=== PATIENT | male | born 1960 | race Caucasian/White ===

== ENCOUNTER 2016-08-06 19:04 | Emergency (ER) | payer OTHER ==
[2016-08-06 19:11] VITALS: BP 127/69; TEMP 98.5; BMI 24.4
--- NOTE | 2016-08-06 19:27 | ED.PDOC ---
General ED Provider: Dr. GUILLERMO RAMIREZ-ER Chief Complaint: Hand Pain/Injury Stated Complaint: a tool box lid fell on my finger Time Seen by Physician: 19:10 Mode of Arrival: Walk-In Information Source: Patient, Family Exam Limitations: No limitations Primary Care Provider: CAMMIE FINN Nursing and Triage Documentation Reviewed and Agree: Yes Musculoskeletal Complaint Exam - Hand/Wrist Complaint/Exam Location of Pain: Reports: Right, Digit #4 Mechanism of Injury: Reports: Trauma Onset/Duration: one hour Symptoms Are: Still present Onset of Pain: Reports: Immediate Initial Severity: Mild Current Severity: Mild Location: Reports: Discrete (right ring finger) Character: Reports: Dull, Aching, Stiffness Alleviating: Reports: None Aggravating: Reports: Movement Associated Signs and Symptoms: Reports: Swelling, Bruising. Denies: Redness, Fever, Weakness, Numbness, Tingling Dominant Hand: Right Hand/Wrist Findings: Present: Swelling, Ecchymosis Tenderness: Present: Phalanx Compartment Syndrome Risk Factors: Present: Pain Differential Diagnoses: Contusion, Closed Fracture, Open Fracture Review of Systems - Review Of Systems Constitutional: Reports: No symptoms Eyes: Reports: No symptoms Ears, Nose, Mouth, Throat: Reports: No symptoms Respiratory: Reports: No symptoms Cardiac: Reports: No symptoms GI: Reports: No symptoms : Reports: No symptoms Musculoskeletal: Reports: Joint pain Skin: Reports: No symptoms Neurological: Reports: No symptoms Endocrine: Reports: No symptoms Hematologic/Lymphatic: Reports: No symptoms All Other Systems: Reviewed and Negative Past Medical History - Past Medical History Previously Healthy: Yes Endocrine: Reports: Dyslipidemia Cardiovascular: Reports: None Respiratory: Reports: None Hematological: Reports: None Gastrointestinal: Reports: None Genitourinary: Reports: None Neuro/Psych: Reports: Other Musculoskeletal: Reports: Back Pain Cancer: Reports: None Other Pertinent Past Medical History: CHRONIC NERVE PAIN. CHRONIC BACK PAIN. - Surgical History General Surgical History: Reports: Unknown - Family History Family History: Reports: Unknown - Social History Smoking Status: Current every day smoker, Heavy tobacco smoker Hx Substance Use: No Alcohol Screening: None Lives: With family - Immunizations Tetanus Shot up to Date: Yes Physical Exam - Physical Exam Appearance: Well-appearing, No pain distress, Well-nourished Pain Distress: Mild Eyes: NATALI, EOMI, Conjunctiva clear ENT: Ears normal Neck: Supple Respiratory: Airway patent, Breath sounds clear, Breath sounds equal, Respirations nonlabored Cardiovascular: RRR, Pulses normal, No rub, No murmur GI/: Soft, Nontender, No masses, Bowel sounds normal, No Organomegaly Musculoskeletal: Limited ROM Skin: Warm Neurological: Sensation intact, Motor intact, Reflexes intact, Cranial nerves intact, Alert, Oriented Psychiatric: Affect appropriate, Mood appropriate Interpretation - Radiology Interpretation Radiology Interpretation By: ED Physician Radiology Results: Positive Procedures - Splinting Location: right ring finger Splint: stax splnt Pre-Proc Neuro Vasc Exam: Normal Post-Proc Neuro Vasc Exam: Normal Critical Care Note - Critical Care Note Total Time (mins): 0 Course - Course Orders, Labs, Meds: Orders Category Date Time Status Wound care [ED WOUND CARE] .ONCE EMERGENCY 08/06/16 19:30 Active FINGER(S) RIGHT MIN 2V Stat RADS 08/06/16 19:14 Ordered Vital Signs: Temp Pulse Resp BP Pulse Ox 08/06/16 19:05 98.5 F 82 16 127/69 98 Departure - Departure Time of Disposition: 19:28 Disposition: HOME SELF-CARE Discharge Problem: Phalanx, distal fracture of finger Qualifiers: Encounter type: initial encounter Finger: ring finger Fracture type: closed Fracture alignment: displaced Laterality: right Qualifier Code: (S62.634A) Displaced fracture of distal phalanx of right ring finger, initial encounter for closed fracture Instructions: Finger Fracture (ED) Condition: Good Pt referred to PMD for follow-up: Yes Additional Instructions: stay in splint--folllowup with ortho walk in [facility] tomorrow--you have refused pain meds tonight--if you change your mind--discuss with ortho tomorrow at the walk in [facility] Allergies/Adverse Reactions: Allergies No Known Allergies Allergy (Verified 08/06/16 19:12) Home Medications: Ambulatory Orders Duloxetine HCl [Cymbalta] 60 mg PO DAILY 01/07/14 Lorazepam [Ativan] 1 mg PO PRN PRN 01/07/14 Hydrocodone/Acetaminophen [Hydrocodon-Acetaminophn 10-325] 1 tab PO PRN PRN 08/21 Simvastatin [Zocor] 20 mg PO QPM 11/01/15 Disposition Discussed With: Patient, Family
--- NOTE | 2016-08-07 07:27 | DI ---
EXAM: Radiographs, right fourth finger HISTORY: Initial presentation for right fourth finger trauma. COMPARISON: None available. TECHNIQUE: Three views. FINDINGS/IMPRESSION: Comminuted, mildly displaced fracture of the fourth distal phalanx involves the shaft and the distal tuft. There is adjacent soft tissue swelling. No dislocation identified.
== END 2016-08-06 19:45 | disposition home or self-care (01) ==
LOC: ED 19:04
DX: S62.634A Displaced fracture of distal phalanx of right ring finger, initial encounter for closed fracture (principal); W20.8XXA Other cause of strike by thrown, projected or falling object, initial encounter; F17.210 Nicotine dependence, cigarettes, uncomplicated; Z79.899 Other long term (current) drug therapy
CPT/HCPCS: 99283

== ENCOUNTER 2016-08-09 09:32 | Emergency (ER) | payer OTHER ==
[2016-08-09 09:33] VITALS: BMI 24.4
[2016-08-09 09:35] VITALS: BP 112/70; TEMP 99.5
[2016-08-09] MEDS ORDERED: ROCEPHIN IM STA (09:39)
[2016-08-09] MEDS ORDERED: LIDOCAINE 1 % AMP 5 ML (SUTURES) IM STA (09:39)
[2016-08-09] MEDS ORDERED: SOLU-MEDROL 125 MG IM STA (09:39)
--- NOTE | 2016-08-09 09:41 | ED.PDOC ---
General ED Provider: Dr. SHIRLEY SILVEIRA JR Chief Complaint: Sore Throat Stated Complaint: complains of sinus drainage making throat hurt, fever, cough with green phlegm [End]99.5 90 18 98% 112/70 Time Seen by Physician: 09:39 Mode of Arrival: Walk-In Information Source: Patient Exam Limitations: No limitations Primary Care Provider: CAMMIE FINN Nursing and Triage Documentation Reviewed and Agree: No Review of Systems - Review Of Systems Constitutional: Reports: Fever, Malaise, Weakness Eyes: Reports: No symptoms Ears, Nose, Mouth, Throat: Reports: Nose discharge, Throat pain Respiratory: Reports: Cough Cardiac: Reports: No symptoms GI: Reports: No symptoms : Reports: No symptoms Musculoskeletal: Reports: No symptoms Skin: Reports: No symptoms Neurological: Reports: No symptoms Endocrine: Reports: No symptoms Hematologic/Lymphatic: Reports: No symptoms All Other Systems: Reviewed and Negative Past Medical History - Past Medical History Previously Healthy: Yes Endocrine: Reports: Dyslipidemia Cardiovascular: Reports: None Respiratory: Reports: None Hematological: Reports: None Gastrointestinal: Reports: GERD Genitourinary: Reports: None Neuro/Psych: Reports: Migraine, Anxiety Musculoskeletal: Reports: Arthritis, Back Pain Cancer: Reports: None Other Pertinent Past Medical History: CHRONIC NERVE PAIN. CHRONIC BACK PAIN. - Surgical History General Surgical History: Reports: Unknown - Family History Family History: Reports: Unknown - Social History Smoking Status: Current every day smoker, Heavy tobacco smoker Hx Substance Use: No Alcohol Screening: None Physical Exam - Physical Exam Appearance: Well-appearing, Thin Ill-appearing: Mild Pain Distress: Mild Eyes: NATALI, EOMI, Conjunctiva clear ENT: Ears normal (cerumen present), TMs [place], Erythema Neck: Supple (sl tender) Respiratory: Airway patent, Breath sounds clear, Breath sounds equal, Respirations nonlabored, Rhonchi Cardiovascular: RRR, Pulses normal, No rub, No murmur GI/: Soft, Nontender, No masses, Bowel sounds normal, No Organomegaly Musculoskeletal: Normal strength, ROM intact, No edema, No calf tenderness Skin: Warm, Dry, Normal color Neurological: Sensation intact, Motor intact, Reflexes intact, Cranial nerves intact, Alert, Oriented Psychiatric: Affect appropriate, Mood appropriate Critical Care Note - Critical Care Note Total Time (mins): 0 Course - Course Vital Signs: Temp Pulse Resp BP Pulse Ox 08/09/16 09:33 99.5 F 90 18 112/70 98 Departure - Departure Time of Disposition: 09:41 Disposition: HOME SELF-CARE Discharge Problem: Sore throat symptom Sinusitis, acute Qualifiers: Sinusitis location: frontal Recurrence: recurrent Qualifier Code: (J01.11) Acute recurrent frontal sinusitis Instructions: How to Stop Smoking (ED), Allergic Rhinitis (ED), Rhinosinusitis (ED) Condition: Good Pt referred to PMD for follow-up: Yes Additional Instructions: antihistamine daily for five days and if symptoms recur repeat antihistamine increase oral fluids recommend cut back on smoking Tylenol and Motrin for fever recheck PMD if symptoms not resolved in 5-7 days Solumedrol and Rocephin given if not completely resolved in 2-3 days begin Keflex (antibiotic) may use over the counter antihistamines may use over the counter cough medication or Robitussin AC caution do not use robitussin with ativan; both can cause sedation Prescriptions: Cephalexin [Keflex] 500 mg PO QID #40 capsule Guaifenesin/Codeine Phosphate [Robitussin AC Syrup] 10 ml PO Q6H PRN #240 ml PRN Reason: Cough Loratadine/Pseudoephedrine [Claritin-D 12 Hour Tablet] 1 each PO BID PRN #60 tab.er.12h PRN Reason: Allergy Symptoms Allergies/Adverse Reactions: Allergies No Known Allergies Allergy (Verified 08/09/16 09:36) Home Medications: Ambulatory Orders Duloxetine HCl [Cymbalta] 60 mg PO DAILY 01/07/14 Lorazepam [Ativan] 1 mg PO PRN PRN 01/07/14 Hydrocodone/Acetaminophen [Hydrocodon-Acetaminophn 10-325] 1 tab PO PRN PRN 08/21 Simvastatin [Zocor] 20 mg PO QPM 11/01/15 Cephalexin [Keflex] 500 mg PO QID #40 capsule 08/09/16 Guaifenesin/Codeine Phosphate [Robitussin AC Syrup] 10 ml PO Q6H PRN #240 ml 06/22 Loratadine/Pseudoephedrine [Claritin-D 12 Hour Tablet] 1 each PO BID PRN #60 tab.er.12h 08/09/16
[2016-08-09 10:01] LABS: FLU INTERNAL QC INTERNAL QC VALID; RAPID FLU A NEGATIVE (NEGATIVE); RAPID FLU B NEGATIVE (NEGATIVE)
== END 2016-08-09 10:22 | disposition home or self-care (01) ==
LOC: ED 09:32
DX: J02.9 Acute pharyngitis, unspecified (principal); J01.11 Acute recurrent frontal sinusitis; F17.210 Nicotine dependence, cigarettes, uncomplicated
CPT/HCPCS: 87651; 87804; 87880; 96372; 99283

== ENCOUNTER 2017-09-03 08:00 | Outpatient (RCR) ==
--- NOTE | 2017-08-23 16:18 | RS.OPPTEV2 ---
Date of Note: 08/23/17 Visit #: 1 Date of Evaluation: 08/23/17 Payer Source: Insurance Surgery Performed?: Yes (08/12/17) Procedure Performed: Right shoulder arthroscopic biceps tenodesis, rotator cuff debridement, subacromial decompression. Treatment Diagnosis: Right shoulder pain, shoulder stiffness, s/p shoulder surgery History of Condition/Mechanism of Injury:: Patient reports progressive right shoulder pain and loss of function led him to require surgery. Prior Level of Function.....Patient was independent with: ADL's, Self Care, Work /Vocation, Caregiving, Ambulation/Mobility, Community Integration/Access Functional Limitations: Sleep, Self Care, ADL's, Reaching, Pushing, Pulling, Lifting, Carrying, Sitting, Standing, Bending, Squatting, Ambulation, Community Access/Integration Current Subjective/complaints:: Patient reports he is not using the right UE at all per orders from the doctor. States he is wearing his sling at all times. States he is right hand dominant, which makes it difficult for him to perform selfcare and ADL's. His helps him. He denies any tingling or numbness in the right UE. States the shoulder is mainly aching. He has iced the right shoulder just a few times. States he is to wear the sling through next week. States he is not sleeping well due to the shoulder sling. Treatment Side (optional): Right *Precautions: Biceps Tenodesis NO ACTIVE ELBOW FLEXION at this time Medical History Medical History Comments:: No prior surgery to right shoulder. Smoking Status: Current every day smoker Hx Home Medications: Cymbalta, Ativan, Zocor, [place], Percocet Patient's Goals: His goal is to regain functional, pain-free use of the right UE. Pain Assessment - Pain Description Pain Location: Right shoulder Pain Description: Aching Current Pain Intensity: 3/10 Worst Pain Intensity: 10/10 Functional Outcome Measure UE Functional Index: 2 (280=97.5% impairment) - G Codes & Severity Modifier G Codes & Modifier: NA Source of G Code score: NA Observation - Observation Inspection: Patient presents to therapy with a sling on the right shoulder. Posture: Forward Head, Rounded Shoulders Handedness: Right Shoulder ROM: Left WFL's Shoulder Muscle Strength: Left WFL's - Right Shoulder ROM Comments: Right shoulder PROM: flexion 45 degrees, abduction 60 degrees. ER 20 degrees. Passive elbow flexion WFL's, extension -40 degrees. Full active wrist flexion/extension. 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 - Right Shoulder Strength Comments: Not tested Sensation - Sensation Right Upper Extremity: Intact/Normal Left Upper Extremity: Intact/Normal - Heat/Cryotherapy Treatment: Cryotherapy (X 10 mins following PROM and evaluation) Interventions - Exercise/Activities/Manual Therapy Exercises/Activities: Patient receives PROM to the right elbow and shoulder. He demonstrates difficulty relaxing the right UE during PROM. PROM into shoulder flexion causes him the most discomfort. Recommended to continue to use the squeeze ball and instructed in gentle scapula ROM with sling on. Emphasized following Dr. Calvert's instructions to NOT use the right UE at all. Recommended he ice the right shoulder a few times a day and given recipe for homemade ice pack. Total minutes of Exercise: X 15 mins Manual Therapy: NA HOME EXERCISE PROGRAM: gentle scapula ROM with sling on. - Charges Timed Code Treatment Minutes: 15 mins Total Treatment Time: 55 mins Procedures billed for this date of service:: EVAL Med, EX, CP EVALUATION COMPLEXITY LEVEL EVALUATION COMPLEXITY LEVEL: HISTORY: Low (No prior right shoulder issues), EXAM OF BODY SYSTEMS: Low, CLINICAL PRESENTATION: Low, CLINICAL DECISION MAKING : Low Assessment Assessment: Patient presents to therapy s/p right shoulder biceps tenodesis. He exhibits limited AROM and PROM of the right shoulder and elbow. He is right hand dominant and is requiring assistance with selfcare and ADL's due to limitations of the right shoulder since surgery. He demonstrates great potential to regain functional use of the right UE with skilled therapy following Dr. Calvert's protocol. Patient Education: Education of diagnosis, Body/Joint mechanics, Home Exercise Program, Home Safety, Activity Modification, Education of Plan of Care Rehab Potential: Good Short Term Goals Goal #1: Pt independent and compliant with HEP and surgery precautions. Goal to be met by: 09/06/17 Goal #2: Right elbow PROM WFL's. Goal to be met by: 09/06/17 Goal #3: Right shoulder PROM WFL's. Goal to be met by: 09/06/17 Goal #4: Pt will demonstrates good postural awareness. Goal to be met by: 09/06/17 Fpc Goals Goal #1: Pt knows HEP and to continue ex's to maintain level of function at D/C. Goal to be met by: 11/15/17 Goal #2: Score on UE functional scale improved to 65/80. Goal to be met by: 11/15/17 Goal #3: Right shoulder AROM WFL's to perform all selfcare and ADL's. Goal to be met by: 11/15/17 Goal #4: Pt able to perform all functional reaching without pain. Goal to be met by: 11/15/17 Plan - Treatment to be Provided Procedures: Therapeutic Exercises, Therapeutic Activity, Manual Therapy, Patient Education Modalities: Cryotherapy - Treatment Plan Frequency: 3 X week Duration: 12 weeks ORDER # VISITS AND/OR THROUGH DATE: 11/15/17 - Treatment Code (1) Shoulder pain Code(s): M25.519 - PAIN IN UNSPECIFIED SHOULDER Qualifiers: Chronicity: acute Laterality: right Qualified Code(s): M25.511 - Pain in right shoulder (2) Shoulder stiffness Qualifiers: Laterality: right Qualified Code(s): M25.611 - Stiffness of right shoulder , not elsewhere classified (3) Postoperative pain, acute, shoulder Code(s): G89.18 - OTHER ACUTE POSTPROCEDURAL PAIN; M25.519 - PAIN IN UNSPECIFIED SHOULDER Comments: G89.18 (4) S/P operative procedure on shoulder Code(s): Z98.89 - OTHER SPECIFIED POSTPROCEDURAL STATES * DO NOT USE * Comments: Z98.890 S/P right shoulder biceps tenodesis, rotator cuff debridement, and subacromial decompression.
--- NOTE | 2017-08-25 13:52 | RS.OPPTDN ---
Subjective Date of Note: 08/25/17 Visit #: 2 Date of Evaluation: 08/23/17 Payer Source: Insurance Treatment Diagnosis: Right shoulder pain, shoulder stiffness, s/p shoulder surgery Current Subjective/complaints:: Patient reports mod to high pain with PROM at shoulder height initially. States mobility has improved with PROM and he is in less pain at end range. States he will add Codmans to HEP as instructed. *Precautions: Biceps Tenodesis NO ACTIVE ELBOW FLEXION at this time Pain Assessment - Pain Description Pain Location: Right shoulder Pain Description: Tightness, Sharp Current Pain Intensity: Mod to high with PROM - Heat/Cryotherapy Treatment: Cryotherapy ([id number] During break in EX. Patient in supine. ) Interventions - Exercise/Activities/Manual Therapy Exercises/Activities: Patient receives PROM to the right elbow and shoulder. Patient able to relax better with PROM of right shoulder today. Frequent breaks to reduce pain and guarding. In sitting, shoulder shrugs and scap retraction, assisted lateral cervical flexion stretching. Began Codmans. Patient given copy of new exercises. Total minutes of Exercise: 32mins Manual Therapy: NA HOME EXERCISE PROGRAM: gentle scapula ROM with sling on. - Objective Findings Observations,measurements,etc.: Patient able to tolerate passive right shoulder flexion to approx 90-92 degrees today - Charges Timed Code Treatment Minutes: 32mins Total Treatment Time: 47mins Procedures billed for this date of service:: CP, EXx2 Assessment: Patient able to progress with PROM today. Patient appears to be consistent with following post-op restrictions. Patient Education: Education of diagnosis, Body/Joint mechanics, Home Exercise Program, Home Safety, Activity Modification Patient demonstrates compliance with HEP?: Yes Short Term Goals Goal #1: Pt independent and compliant with HEP and surgery precautions. Goal to be met by: 09/06/17 Progress towards Goal:: Progressing Goal #2: Right elbow PROM WFL's. Goal to be met by: 09/06/17 Progress towards Goal:: Progressing Goal #3: Right shoulder PROM WFL's. Goal to be met by: 09/06/17 Progress towards Goal:: Progressing Goal #4: Pt will demonstrates good postural awareness. Goal to be met by: 09/06/17 Code Official Goals Goal #1: Pt knows HEP and to continue ex's to maintain level of function at D/C. Goal to be met by: 11/15/17 Goal #2: Score on UE functional scale improved to 65/80. Goal to be met by: 11/15/17 Goal #3: Right shoulder AROM WFL's to perform all selfcare and ADL's. Goal to be met by: 11/15/17 Goal #4: Pt able to perform all functional reaching without pain. Goal to be met by: 11/15/17 Plan PLAN OF CARE EXPIRES ON:: 11/15/17 ORDER # VISITS AND/OR THROUGH DATE: 11/15/17 PLAN: Progress per protocol.
--- NOTE | 2017-08-27 09:55 | RS.OPPTDN ---
Subjective Date of Note: 08/27/17 Visit #: 3 Date of Evaluation: 08/23/17 Payer Source: Insurance Treatment Diagnosis: Right shoulder pain, shoulder stiffness, s/p shoulder surgery Current Subjective/complaints:: Reports he is working on HEP and feels movement with Codmans exercise is improving. *Precautions: Biceps Tenodesis NO ACTIVE ELBOW FLEXION at this time Pain Assessment - Pain Description Pain Location: right shoulder Pain Description: Aching Current Pain Intensity: mod with PROM - Heat/Cryotherapy Treatment: Cryotherapy ([id number] proior to and 5mins following PROM. Patient in supine. ) Interventions - Exercise/Activities/Manual Therapy Exercises/Activities: Patient receives PROM to the right elbow and shoulder. Frequent breaks to relieve pain and muscle guarding. In sitting, shoulder shrugs and scap retraction, assisted lateral cervical flexion stretching. Isometric cervical retraction. Codmans. Total minutes of Exercise: 30mins Manual Therapy: NA HOME EXERCISE PROGRAM: gentle scapula ROM with sling on. - Objective Findings Observations,measurements,etc.: Increased to 95 degrees flexion with PROM of the right shoulder today. - Charges Timed Code Treatment Minutes: 30mins Total Treatment Time: 45mins Procedures billed for this date of service:: EX2, CP Assessment: Patient continues to demo muscle guarding due to pain, but demos increase in ROM today. Patient Education: Body/Joint mechanics, Home Exercise Program, Home Safety, Activity Modification Patient demonstrates compliance with HEP?: Yes Short Term Goals Goal #1: Pt independent and compliant with HEP and surgery precautions. Goal to be met by: 09/06/17 Progress towards Goal:: Progressing Goal #2: Right elbow PROM WFL's. Goal to be met by: 09/06/17 Progress towards Goal:: Partially Met Goal #3: Right shoulder PROM WFL's. Goal to be met by: 09/06/17 Progress towards Goal:: Progressing Goal #4: Pt will demonstrates good postural awareness. Goal to be met by: 09/06/17 Senior Living Goals Goal #1: Pt knows HEP and to continue ex's to maintain level of function at D/C. Goal to be met by: 11/15/17 Goal #2: Score on UE functional scale improved to 65/80. Goal to be met by: 11/15/17 Goal #3: Right shoulder AROM WFL's to perform all selfcare and ADL's. Goal to be met by: 11/15/17 Goal #4: Pt able to perform all functional reaching without pain. Goal to be met by: 11/15/17 Plan PLAN OF CARE EXPIRES ON:: 11/15/17 ORDER # VISITS AND/OR THROUGH DATE: 11/15/17 PLAN: Progress PROM of right shoulder
--- NOTE | 2017-08-30 13:02 | RS.OPPTDN ---
Subjective Date of Note: 08/30/17 Visit #: 4 Date of Evaluation: 08/23/17 Payer Source: Insurance Treatment Diagnosis: Right shoulder pain, shoulder stiffness, s/p shoulder surgery Current Subjective/complaints:: Patient seems his ROM is improving and he is tolerating PROM better. *Precautions: Biceps Tenodesis NO ACTIVE ELBOW FLEXION at this time Pain Assessment - Pain Description Pain Location: Right shoulder and upper arm Pain Description: Aching Current Pain Intensity: mild, increasing with PROM at end range Interventions - Exercise/Activities/Manual Therapy Exercises/Activities: Patient receives PROM to the right elbow and shoulder. Cold pack to the right shoulder during initial PROM. Frequent breaks to relieve pain and muscle guarding. In sitting, shoulder shrugs and scap retraction, assisted lateral cervical flexion stretching. Isometric cervical retraction. Codmans. Total minutes of Exercise: 38mins Manual Therapy: Soft tissue massage and myofascial work to the mid biceps and distal biceps tendon. Total minutes of Manual Therapy: 4mins HOME EXERCISE PROGRAM: gentle scapula ROM with sling on,, Codmans, cervical retraction, cervical lateral flexion - Charges Timed Code Treatment Minutes: 42mins Total Treatment Time: 43mins Procedures billed for this date of service:: EX3 Assessment: Patient progressing with PROM and appears to be consistent with HEP. Patient Education: Home Exercise Program Patient demonstrates compliance with HEP?: Yes Short Term Goals Goal #1: Pt independent and compliant with HEP and surgery precautions. Goal to be met by: 09/06/17 Progress towards Goal:: Progressing Goal #2: Right elbow PROM WFL's. Goal to be met by: 09/06/17 Progress towards Goal:: Partially Met Goal #3: Right shoulder PROM WFL's. Goal to be met by: 09/06/17 Progress towards Goal:: Progressing Goal #4: Pt will demonstrates good postural awareness. 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 Goal to be met by: 11/15/17 Goal #2: Score on UE functional scale improved to 65/80. Goal to be met by: 11/15/17 Goal #3: Right shoulder AROM WFL's to perform all selfcare and ADL's. Goal to be met by: 11/15/17 Goal #4: Pt able to perform all functional reaching without pain. Goal to be met by: 11/15/17 Plan PLAN OF CARE EXPIRES ON:: 11/15/17 ORDER # VISITS AND/OR THROUGH DATE: 11/15/17 PLAN: Progress with PROM
--- NOTE | 2017-09-01 10:22 | RS.OPPTDN ---
Subjective Date of Note: 09/01/17 Visit #: 5 Date of Evaluation: 08/23/17 Payer Source: Insurance Treatment Diagnosis: Right shoulder pain, shoulder stiffness, s/p shoulder surgery Current Subjective/complaints:: Patient reports increased soreness right shoulder and upper arm. States he rolled over on right arm in the night, which has caused him discomfort all morning. *Precautions: Biceps Tenodesis NO ACTIVE ELBOW FLEXION at this time Pain Assessment - Pain Description Pain Location: right shoulder and upper arm Pain Description: Aching Current Pain Intensity: mod to high Other Comments regarding Pain:: Reports pain reduced following treatment today. - Heat/Cryotherapy Comments:: Cold pack to the right shoulder during initial PROM Interventions - Exercise/Activities/Manual Therapy Exercises/Activities: Patient receives PROM to the right elbow and shoulder. Cold pack to the right shoulder during initial PROM. Frequent breaks to relieve pain and muscle guarding. In sitting, shoulder shrugs and scap retraction, assisted lateral cervical flexion stretching. Isometric cervical retraction. Pendulm to end treatment, patient relaxing right shoulder joint better. No additions to HEP. Total minutes of Exercise: 40 Manual Therapy: Soft tissue massage and myofascial work to the mid biceps and distal biceps tendon during breaks in PROM of right shoulder. Total minutes of Manual Therapy: 47 HOME EXERCISE PROGRAM: gentle scapula ROM with sling on,, Codmans, cervical retraction, cervical lateral flexion - Objective Findings Observations,measurements,etc.: Right shoulder with increase muscle guarding today. Patient demos full right elbow extension with gentle ROM today, flex slightly limited due to tightness and discomfort. - Charges Timed Code Treatment Minutes: 47mins Total Treatment Time: 50mins Procedures billed for this date of service:: EX3 Assessment: Patient with a flair-up of pain today after he rolled over onto right shoulder while sleeping last night. Patient reported good response to PROM and manual therapy with reduction of pain and increased motion. Patient Education: Home Exercise Program, Home Safety, Activity Modification Patient demonstrates compliance with HEP?: Yes Short Term Goals Goal #1: Pt independent and compliant with HEP and surgery precautions. Goal to be met by: 09/06/17 Progress towards Goal:: Progressing Goal #2: Right elbow PROM WFL's. Goal to be met by: 09/06/17 Progress towards Goal:: Met Comments:: Patient demos full extension with gentle ROM today, flex slightly limited Goal #3: Right shoulder PROM WFL's. Goal to be met by: 09/06/17 Progress towards Goal:: Progressing Goal #4: Pt will demonstrates good postural awareness. 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 Goal to be met by: 11/15/17 Goal #2: Score on UE functional scale improved to 65/80. Goal to be met by: 11/15/17 Goal #3: Right shoulder AROM WFL's to perform all selfcare and ADL's. Goal to be met by: 11/15/17 Goal #4: Pt able to perform all functional reaching without pain. Goal to be met by: 11/15/17 Plan PLAN OF CARE EXPIRES ON:: 11/15/17 ORDER # VISITS AND/OR THROUGH DATE: 11/15/17 PLAN: Continue and progress PROM of the right shoulder, elbow, and wrist.
--- NOTE | 2017-09-03 10:56 | RS.OPPTDN ---
Subjective Date of Note: 09/03/17 Visit #: 6 Date of Evaluation: 08/23/17 Payer Source: Insurance Treatment Diagnosis: Right shoulder pain, shoulder stiffness, s/p shoulder surgery Current Subjective/complaints:: Patient reports increased stiffness right shoulder, may be due to change in weather. Reports he is working on HEP. *Precautions: Biceps Tenodesis NO ACTIVE ELBOW FLEXION at this time Pain Assessment - Pain Description Pain Location: right shoulder and upper arm Pain Description: Aching Current Pain Intensity: mod+ - Heat/Cryotherapy Comments:: CP to the right shoulder during PROM Interventions - Exercise/Activities/Manual Therapy Exercises/Activities: Patient receives PROM to the right elbow and shoulder. Cold pack to the right shoulder during initial PROM. Frequent breaks to relieve pain and muscle guarding. In supine, scap protraction/retraction with UE supported. In sitting, shoulder shrugs and scap retraction, assisted lateral cervical flexion stretching. Isometric cervical retraction. No additions to HEP. Total minutes of Exercise: 42mins Manual Therapy: Soft tissue massage and myofascial work along the biceps during breaks in PROM of right shoulder. Total minutes of Manual Therapy: 5mins HOME EXERCISE PROGRAM: gentle scapula ROM with sling on,, Codmans, cervical retraction, cervical lateral flexion - Charges Timed Code Treatment Minutes: 47mins Total Treatment Time: 47mins Procedures billed for this date of service:: EX3 Assessment: Patient continues to be consistent with attendance and HEP. Patient Education: Home Exercise Program Patient demonstrates compliance with HEP?: Yes Short Term Goals Goal #1: Pt independent and compliant with HEP and surgery precautions. Goal to be met by: 09/06/17 Progress towards Goal:: Progressing Goal #2: Right elbow PROM WFL's. Goal to be met by: 09/06/17 Progress towards Goal:: Met Goal #3: Right shoulder PROM WFL's. Goal to be met by: 09/06/17 Progress towards Goal:: Progressing Goal #4: Pt will demonstrates good postural awareness. Goal to be met by: 09/06/17 Residential Goals Goal #1: Pt knows HEP and to continue ex's to maintain level of function at D/C. Goal to be met by: 11/15/17 Goal #2: Score on UE functional scale improved to 65/80. Goal to be met by: 11/15/17 Goal #3: Right shoulder AROM WFL's to perform all selfcare and ADL's. Goal to be met by: 11/15/17 Goal #4: Pt able to perform all functional reaching without pain. Goal to be met by: 11/15/17 Plan PLAN OF CARE EXPIRES ON:: 11/15/17 ORDER # VISITS AND/OR THROUGH DATE: 11/15/17 PLAN: Continue PROM as tolerated.
== END 2017-09-04 23:59 ==
PROVIDERS: ATTEND Orthopaedic Surgery
DX: S43.431D Superior glenoid labrum lesion of right shoulder, subsequent encounter (principal); M25.511 Pain in right shoulder; M25.611 Stiffness of right shoulder, not elsewhere classified; G89.18 Other acute postprocedural pain; Z98.890 Other specified postprocedural states

== ENCOUNTER 2017-10-04 08:00 | Outpatient (RCR) ==
--- NOTE | 2017-09-06 10:22 | RS.OPPTDN ---
Subjective Date of Note: 09/06/17 Visit #: 7 Date of Evaluation: 08/23/17 Payer Source: Insurance Treatment Diagnosis: Right shoulder pain, shoulder stiffness, s/p shoulder surgery Current Subjective/complaints:: Patient reports soreness and tightness of the right shoulder joint. Reports improvement in mobility following PROM. *Precautions: Biceps Tenodesis NO ACTIVE ELBOW FLEXION at this time Pain Assessment - Pain Description Pain Location: Right shoulder and upper arm Current Pain Intensity: mod+ with PROM at end range - Heat/Cryotherapy Treatment: Cryotherapy (CP to the right shoulder during initial PROM. Patient in supine. ) Interventions - Exercise/Activities/Manual Therapy Exercises/Activities: Patient receives PROM to the right elbow and shoulder. Cold pack to the right shoulder during initial PROM. In supine, scap protraction /retraction and depression/elevation with UE supported. In sitting, shoulder shrugs and scap retraction. Total minutes of Exercise: 30mins Manual Therapy: Soft tissue massage and myofascial work along the biceps during breaks in PROM of right shoulder. Total minutes of Manual Therapy: 5mins HOME EXERCISE PROGRAM: gentle scapula ROM with sling on,, Codmans, cervical retraction, cervical lateral flexion - Objective Findings Observations,measurements,etc.: Passive right shoulder flexion 112 degrees. - Charges Timed Code Treatment Minutes: 35mins Total Treatment Time: 35mins Procedures billed for this date of service:: EX2 Assessment: Patient continues to have joint stiffness but improves PROM during treatment session. Patient Education: Body/Joint mechanics, Home Exercise Program Patient demonstrates compliance with HEP?: Yes Short Term Goals Goal #1: Pt independent and compliant with HEP and surgery precautions. Goal to be met by: 09/06/17 Progress towards Goal:: Progressing Goal #2: Right elbow PROM WFL's. Goal to be met by: 09/06/17 Progress towards Goal:: Met Goal #3: Right shoulder PROM WFL's. Goal to be met by: 09/06/17 Progress towards Goal:: Progressing Goal #4: Pt will demonstrates good postural awareness. 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 Goal to be met by: 11/15/17 Goal #2: Score on UE functional scale improved to 65/80. Goal to be met by: 11/15/17 Goal #3: Right shoulder AROM WFL's to perform all selfcare and ADL's. Goal to be met by: 11/15/17 Goal #4: Pt able to perform all functional reaching without pain. Goal to be met by: 11/15/17 Plan PLAN OF CARE EXPIRES ON:: 11/15/17 ORDER # VISITS AND/OR THROUGH DATE: 11/15/17 PLAN: Progress PROM as tolerated.
--- NOTE | 2017-09-09 10:02 | RS.OPPTDN ---
Subjective Date of Note: 09/09/17 Visit #: 8 Date of Evaluation: 08/23/17 Payer Source: Insurance Treatment Diagnosis: Right shoulder pain, shoulder stiffness, s/p shoulder surgery Current Subjective/complaints:: Patient reports pain with PROM is not as bad today. Reports today is the last day he has to wear the sling. Patient agrees to be cautious with right UE and may wear sling in community for the next week for safety. *Precautions: Biceps Tenodesis NO ACTIVE ELBOW FLEXION at this time Pain Assessment - Pain Description Pain Location: right shoulder and upper arm Current Pain Intensity: mild to mod with PROM Interventions - Exercise/Activities/Manual Therapy Exercises/Activities: PROM to right shoulder, elbow and wrist. Cold pack to the right shoulder during initial PROM. In supine, scap protraction/retraction and depression/elevation with UE supported. Began table slides for horz abd and add , and elbow flex/ext. Total minutes of Exercise: 38mins Manual Therapy: Soft tissue massage and myofascial work along the biceps during breaks in PROM of right shoulder. Total minutes of Manual Therapy: 5mins HOME EXERCISE PROGRAM: gentle scapula ROM with sling on,, Codmans, cervical retraction, cervical lateral flexion - Charges Timed Code Treatment Minutes: 43mins Total Treatment Time: 43mins Procedures billed for this date of service:: EX3 Assessment: Patient progressing with exercise. Patient aware of safety precautions when discharging sling tomorrow. Patient Education: Body/Joint mechanics, Home Exercise Program, Home Safety, Activity Modification Patient demonstrates compliance with HEP?: Yes Short Term Goals Goal #1: Pt independent and compliant with HEP and surgery precautions. Goal to be met by: 09/06/17 Progress towards Goal:: Partially Met Goal #2: Right elbow PROM WFL's. Goal to be met by: 09/06/17 Progress towards Goal:: Met Goal #3: Right shoulder PROM WFL's. Goal to be met by: 09/06/17 Progress towards Goal:: Progressing Goal #4: Pt will demonstrates good postural awareness. Goal to be met by: 09/06/17 Progress towards Goal:: Progressing Pizzamaker Goals Goal #1: Pt knows HEP and to continue ex's to maintain level of function at D/C. Goal to be met by: 11/15/17 Progress towards goal: Progressing Goal #2: Score on UE functional scale improved to 65/80. Goal to be met by: 11/15/17 Goal #3: Right shoulder AROM WFL's to perform all selfcare and ADL's. Goal to be met by: 11/15/17 Goal #4: Pt able to perform all functional reaching without pain. Goal to be met by: 11/15/17 Plan PLAN OF CARE EXPIRES ON:: 11/15/17 ORDER # VISITS AND/OR THROUGH DATE: 11/15/17 PLAN: Progress with exercise per protocol.
--- NOTE | 2017-09-10 12:02 | RS.OPPTDN ---
Subjective Date of Note: 09/10/17 Visit #: 9 Date of Evaluation: 08/23/17 Payer Source: Insurance Treatment Diagnosis: Right shoulder pain, shoulder stiffness, s/p shoulder surgery Current Subjective/complaints:: Patient reports he feels he can progress with active and AA exercises. He will continue to use precautions. *Precautions: Biceps Tenodesis NO ACTIVE ELBOW FLEXION at this time Interventions - Exercise/Activities/Manual Therapy Exercises/Activities: PROM to right shoulder, elbow and wrist. Cold pack to the right shoulder during initial PROM. In supine, scap protraction/retraction and depression/elevation with UE supported. Began AA flexion and limited abduction of right shoulder. Clasped hands for AA flexion. Active biceps curls, slow motion. Table slides for horz abd and add, and elbow flex/ext. Sitting, active and assisted short right shoulder flexion and assisted abduction. Total minutes of Exercise: 44mins Manual Therapy: Soft tissue massage and myofascial work along the biceps. Total minutes of Manual Therapy: 3mins HOME EXERCISE PROGRAM: gentle scapula ROM with sling on,, Codmans, cervical retraction, cervical lateral flexion - Charges Timed Code Treatment Minutes: 47mins Total Treatment Time: 47mins Procedures billed for this date of service:: EX3 Assessment: Patient progressed with AAROM and limited active exercise per protocol. Patient Education: Body/Joint mechanics, Home Exercise Program, Home Safety, Activity Modification Patient demonstrates compliance with HEP?: Yes Short Term Goals Goal #1: Pt independent and compliant with HEP and surgery precautions. Goal to be met by: 09/06/17 Progress towards Goal:: Partially Met Goal #2: Right elbow PROM WFL's. Goal to be met by: 09/06/17 Progress towards Goal:: Met Goal #3: Right shoulder PROM WFL's. Goal to be met by: 09/06/17 Progress towards Goal:: Progressing Goal #4: Pt will demonstrates good postural awareness. Goal to be met by: 09/06/17 Progress towards Goal:: Progressing Alf Goals Goal #1: Pt knows HEP and to continue ex's to maintain level of function at D/C. Goal to be met by: 11/15/17 Progress towards goal: Progressing Goal #2: Score on UE functional scale improved to 65/80. Goal to be met by: 11/15/17 Goal #3: Right shoulder AROM WFL's to perform all selfcare and ADL's. Goal to be met by: 11/15/17 Goal #4: Pt able to perform all functional reaching without pain. Goal to be met by: 11/15/17 Plan PLAN OF CARE EXPIRES ON:: 11/15/17 ORDER # VISITS AND/OR THROUGH DATE: 11/15/17 PLAN: Progress with active and AAROM exercises.
--- NOTE | 2017-09-13 11:55 | RS.OPPTDN ---
Subjective Date of Note: 09/13/17 Visit #: 10 Date of Evaluation: 08/23/17 Payer Source: Insurance Treatment Diagnosis: Right shoulder pain, shoulder stiffness, s/p shoulder surgery Current Subjective/complaints:: Patient reports improvement in right shoulder discomfort. *Precautions: Biceps Tenodesis NO ACTIVE ELBOW FLEXION at this time Interventions - Exercise/Activities/Manual Therapy Exercises/Activities: PROM to right shoulder, elbow and wrist. In supine, scap protraction/retraction and depression/elevation with UE supported. AA flexion and limited abduction of right shoulder. Clasped hands for AA flexion. Active biceps curls, slow motion. Wand for shoulder flex/ext and chest press. Isometric shoulder add and ext in neutral position. Table slides for horz abd and add, and elbow flex/ext. Sitting, active and assisted short right shoulder flexion and assisted abduction. Total minutes of Exercise: 44mins Manual Therapy: Soft tissue massage and myofascial work along the biceps. HOME EXERCISE PROGRAM: gentle scapula ROM with sling on,, Codmans, cervical retraction, cervical lateral flexion. light isometric shoulder add and ext in neutral position. - Charges Timed Code Treatment Minutes: 44mins Total Treatment Time: 46mins Procedures billed for this date of service:: EX3 Assessment: Patient progressing with active exercise. Patient Education: Home Exercise Program, Activity Modification Patient demonstrates compliance with HEP?: Yes Short Term Goals Goal #1: Pt independent and compliant with HEP and surgery precautions. Goal to be met by: 09/06/17 Progress towards Goal:: Partially Met Goal #2: Right elbow PROM WFL's. Goal to be met by: 09/06/17 Progress towards Goal:: Met Goal #3: Right shoulder PROM WFL's. Goal to be met by: 09/06/17 Progress towards Goal:: Progressing Goal #4: Pt will demonstrates good postural awareness. 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 Goal to be met by: 11/15/17 Progress towards goal: Progressing Goal #2: Score on UE functional scale improved to 65/80. Goal to be met by: 11/15/17 Goal #3: Right shoulder AROM WFL's to perform all selfcare and ADL's. Goal to be met by: 11/15/17 Goal #4: Pt able to perform all functional reaching without pain. Goal to be met by: 11/15/17 Plan PLAN OF CARE EXPIRES ON:: 11/15/17 ORDER # VISITS AND/OR THROUGH DATE: 11/15/17 PLAN: Continue progressing AROM exercise per protocol.
--- NOTE | 2017-09-15 11:35 | RS.OPPTDN ---
Subjective Date of Note: 09/15/17 Visit #: 11 Date of Evaluation: 08/23/17 Payer Source: Insurance Treatment Diagnosis: Right shoulder pain, shoulder stiffness, s/p shoulder surgery Current Subjective/complaints:: Patient reports increased soreness today. States he was at the hospital with family member most of the day yesterday and then slept without sling last night. Reports some increased motion following exercise today. *Precautions: Biceps Tenodesis Pain Assessment - Pain Description Pain Location: Right shoulder joint and upper arm Pain Description: Aching Current Pain Intensity: mild Interventions - Exercise/Activities/Manual Therapy Exercises/Activities: PROM to right shoulder, elbow and wrist. In supine, scap protraction/retraction and depression/elevation with UE supported. AA flexion and short range AA abduction of right shoulder. Clasped hands for AA flexion. Active biceps curls. Wand for shoulder flex/ext and chest press. Isometric shoulder add and ext in neutral position. In sitting, light wand for bilateral shoulder flexion to approx 80 degrees. Assisted horz abd and add, and elbow flex /ext. Scapular retraction and elevation/depression. Continue cervical ROM and Codmans at home. Total minutes of Exercise: 40mins Manual Therapy: Soft tissue massage and myofascial work along the biceps. Total minutes of Manual Therapy: 2mins HOME EXERCISE PROGRAM: gentle scapula ROM with sling on,, Codmans, cervical retraction, cervical lateral flexion. light isometric shoulder add and ext in neutral position. - Objective Findings Observations,measurements,etc.: AA right shoulder flexion 108 degrees, Passive right shoulder flexion to 124 degrees. AA right shoulder abduction 110 degrees. - Charges Timed Code Treatment Minutes: 42mins Total Treatment Time: 42mins Procedures billed for this date of service:: EX3 Assessment: Patient progressing with conservative exercise and has progressed to gentle AROM per protocol. Patient will need to increase PROM and AROM, and demos motivation to work on this with HEP. Patient Education: Body/Joint mechanics, Home Exercise Program, Home Safety, Activity Modification Patient demonstrates compliance with HEP?: Yes Short Term Goals Goal #1: Pt independent and compliant with HEP and surgery precautions. Goal to be met by: 09/06/17 Progress towards Goal:: Met Goal #2: Right elbow PROM WFL's. Goal to be met by: 09/06/17 Progress towards Goal:: Met Goal #3: Right shoulder PROM WFL's. Goal to be met by: 09/06/17 Progress towards Goal:: Progressing Goal #4: Pt will demonstrates good postural awareness. Goal to be met by: 09/06/17 Progress towards Goal:: Partially Met Long-Term Goals Goal #1: Pt knows HEP and to continue ex's to maintain level of function at D/C. Goal to be met by: 11/15/17 Progress towards goal: Progressing Goal #2: Score on UE functional scale improved to 65/80. Goal to be met by: 11/15/17 Goal #3: Right shoulder AROM WFL's to perform all selfcare and ADL's. Goal to be met by: 11/15/17 Goal #4: Pt able to perform all functional reaching without pain. Goal to be met by: 11/15/17 Plan PLAN OF CARE EXPIRES ON:: 11/15/17 ORDER # VISITS AND/OR THROUGH DATE: 11/15/17 PLAN: Patient to have a follow-up appointment with surgeon tomorrow. Will continue POC, progressing with protocol, with continuation orders from physician.
--- NOTE | 2017-09-17 15:41 | RS.OPPTDN ---
Subjective Date of Note: 09/17/17 Visit #: 12 Date of Evaluation: 08/23/17 Payer Source: Insurance Treatment Diagnosis: Right shoulder pain, shoulder stiffness, s/p shoulder surgery Current Subjective/complaints:: Patient reports seeing surgeons PA yesterday. States he was pleased with patients progress and reviewed precautions. Patient reports he is going without his sling all of the time now. *Precautions: Biceps Tenodesis Pain Assessment - Pain Description Pain Location: Right shoulder and upper arm Pain Description: Dull, Aching Current Pain Intensity: mild to mod Interventions - Exercise/Activities/Manual Therapy Exercises/Activities: PROM to right shoulder, elbow and wrist. Began light passive ER. In supine, scap protraction/retraction and depression/elevation with UE supported. AA flexion and short range AA abduction of right shoulder. Active biceps curls. Isometric shoulder add, abd, ext, and flex with arm at side. With shoulder at 90 degrees and elbow locked in full ext, isometric flex, ext, add, and abd. Wand for shoulder flex/ext and chest press. Isometric shoulder add and ext in neutral position. In sitting, light wand for bilateral shoulder flexion to 90 degrees today. Assisted horz abd and add, and elbow flex/ ext. Scapular retraction and elevation/depression. Overhead pulleys. Total minutes of Exercise: 42mins Manual Therapy: Soft tissue massage and myofascial work along the biceps. Total minutes of Manual Therapy: 4mins HOME EXERCISE PROGRAM: gentle scapula ROM with sling on,, Codmans, cervical retraction, cervical lateral flexion. Table slides. Isometric shoulder flex, ext , add, and abd. Overhead shoulder pulleys. Wand for shoulder flexion to shoulder height in sitting. - Objective Findings Observations,measurements,etc.: AA right shoulder flexion to 90 degrees in sitting today. - Charges Timed Code Treatment Minutes: 46mins Total Treatment Time: 46mins Procedures billed for this date of service:: EX3 Assessment: Patient progressing well with AROM and AAROM. Patient Education: Home Exercise Program Patient demonstrates compliance with HEP?: Yes Short Term Goals Goal #1: Pt independent and compliant with HEP and surgery precautions. Goal to be met by: 09/06/17 Progress towards Goal:: Met Goal #2: Right elbow PROM WFL's. Goal to be met by: 09/06/17 Progress towards Goal:: Met Goal #3: Right shoulder PROM WFL's. Goal to be met by: 09/06/17 Progress towards Goal:: Partially Met Goal #4: Pt will demonstrates good postural awareness. Goal to be met by: 09/06/17 Progress towards Goal:: Partially Met [facility] Goals Goal #1: Pt knows HEP and to continue ex's to maintain level of function at D/C. Goal to be met by: 11/15/17 Progress towards goal: Progressing Goal #2: Score on UE functional scale improved to 65/80. Goal to be met by: 11/15/17 Goal #3: Right shoulder AROM WFL's to perform all selfcare and ADL's. Goal to be met by: 11/15/17 Goal #4: Pt able to perform all functional reaching without pain. Goal to be met by: 11/15/17 Plan PLAN OF CARE EXPIRES ON:: 11/15/17 ORDER # VISITS AND/OR THROUGH DATE: 11/15/17 PLAN: Progress with AROM as tolerated.
--- NOTE | 2017-09-20 10:14 | RS.OPPTDN ---
Subjective Date of Note: 09/20/17 Visit #: 13 Date of Evaluation: 08/23/17 Payer Source: Insurance Treatment Diagnosis: Right shoulder pain, shoulder stiffness, s/p shoulder surgery Current Subjective/complaints:: Reports right shoulder is tight, but feels he is doing better with exercise today. *Precautions: Biceps Tenodesis Pain Assessment - Pain Description Pain Location: right shoulder and upper arm Current Pain Intensity: mild Interventions - Exercise/Activities/Manual Therapy Exercises/Activities: PROM to right shoulder, elbow and wrist. Passive IR and ER. In supine, scap protraction/retraction and depression/elevation with UE supported. AA flexion and abduction of right shoulder. Active biceps curls and flexion. Isometric shoulder add, abd, ext, and flex with arm at side. With shoulder at 90 degrees and elbow locked in full ext, isometric flex, ext, add, and abd. Wand for shoulder flex/ext and chest press. Isometric shoulder add, ext , abd, and flexion. In sitting, light wand for bilateral shoulder flexion to 90 degrees today. Assisted horz abd and add, and flexion, scaption, and abduction. Scapular retraction and elevation/depression. Assisted stretching of into lateral cervical flexion. Total minutes of Exercise: 42mins Manual Therapy: Soft tissue massage and myofascial work along the biceps. Trigger point release to the right traps with assisted stretching. Total minutes of Manual Therapy: 4mins HOME EXERCISE PROGRAM: gentle scapula ROM with sling on,, Codmans, cervical retraction, cervical lateral flexion. Table slides. Isometric shoulder flex, ext , add, and abd. Overhead shoulder pulleys. Wand for shoulder flexion to shoulder height in sitting. - Charges Timed Code Treatment Minutes: 46mins Total Treatment Time: 46mins Procedures billed for this date of service:: EX3 Assessment: Patient progressing with active motion exercises. Patient Education: Home Exercise Program, Home Safety, Activity Modification Patient demonstrates compliance with HEP?: Yes Short Term Goals Goal #1: Pt independent and compliant with HEP and surgery precautions. Goal to be met by: 09/06/17 Progress towards Goal:: Met Goal #2: Right elbow PROM WFL's. Goal to be met by: 09/06/17 Progress towards Goal:: Met Goal #3: Right shoulder PROM WFL's. Goal to be met by: 09/06/17 Progress towards Goal:: Partially Met Goal #4: Pt will demonstrates good postural awareness. 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 Goal to be met by: 11/15/17 Progress towards goal: Progressing Goal #2: Score on UE functional scale improved to 65/80. Goal to be met by: 11/15/17 Goal #3: Right shoulder AROM WFL's to perform all selfcare and ADL's. Goal to be met by: 11/15/17 Goal #4: Pt able to perform all functional reaching without pain. Goal to be met by: 11/15/17 Plan PLAN OF CARE EXPIRES ON:: 11/15/17 ORDER # VISITS AND/OR THROUGH DATE: 11/15/17 PLAN: Continue progression of AROM.
--- NOTE | 2017-09-22 10:00 | RS.OPPTDN ---
Subjective Date of Note: 09/22/17 Visit #: 14 Date of Evaluation: 08/23/17 Payer Source: Insurance Treatment Diagnosis: Right shoulder pain, shoulder stiffness, s/p shoulder surgery Current Subjective/complaints:: Patient reports soreness in the right shoulder joint seems to be better today. States he did wear his sling last evening because his arm was aching. States he will progress cuff series as instructed. *Precautions: Biceps Tenodesis Interventions - Exercise/Activities/Manual Therapy Exercises/Activities: In sitting, scap retraction with red theraband for wand. Standing cuff series for flex, abd, ext, and scap retraction, sets of 5reps. In supine, PROM and AAROM to right shoulder, including limited IR and ER. In supine , scap protraction/retraction and depression/elevation with UE supported. Active biceps curls and flexion. Isometric shoulder add, abd, ext, and flex with arm at side. With shoulder at 90 degrees and elbow locked in full ext, isometric flex, ext, add, and abd. Isometric bilateral IR with ball. Ball overhead for short range flex. Wand for shoulder flex/ext and chest press. Started 3# wand for chest press. Isometric shoulder add, ext, abd, and flexion. In sitting, light wand for bilateral shoulder flexion to 90 degrees ad biceps curl. Assisted horz abd and add, and flexion, scaption, and abduction, sets of 5reps. Scapular retraction and elevation/depression. Assisted stretching of into lateral cervical flexion. Total minutes of Exercise: 42mins Manual Therapy: Trigger point release to the right traps with assisted stretching. Total minutes of Manual Therapy: 2mins HOME EXERCISE PROGRAM: gentle scapula ROM with sling on,, Codmans, cervical retraction, cervical lateral flexion. Table slides. Isometric shoulder flex, ext , add, and abd. Overhead shoulder pulleys. Wand for shoulder flexion to shoulder height in sitting. Cuff series, no weight. - Charges Timed Code Treatment Minutes: 44mins Total Treatment Time: 44mins Procedures billed for this date of service:: EX3 Assessment: Patient progressed well with exercise today. Patient Education: Home Exercise Program Patient demonstrates compliance with HEP?: Yes Short Term Goals Goal #1: Pt independent and compliant with HEP and surgery precautions. Goal to be met by: 09/06/17 Progress towards Goal:: Met Goal #2: Right elbow PROM WFL's. Goal to be met by: 09/06/17 Progress towards Goal:: Met Goal #3: Right shoulder PROM WFL's. Goal to be met by: 09/06/17 Progress towards Goal:: Partially Met Goal #4: Pt will demonstrates good postural awareness. Goal to be met by: 09/06/17 Progress towards Goal:: Partially Met Mental Tester Goals Goal #1: Pt knows HEP and to continue ex's to maintain level of function at D/C. Goal to be met by: 11/15/17 Progress towards goal: Progressing Goal #2: Score on UE functional scale improved to 65/80. Goal to be met by: 11/15/17 Goal #3: Right shoulder AROM WFL's to perform all selfcare and ADL's. Goal to be met by: 11/15/17 Goal #4: Pt able to perform all functional reaching without pain. Goal to be met by: 11/15/17 Plan PLAN OF CARE EXPIRES ON:: 11/15/17 ORDER # VISITS AND/OR THROUGH DATE: 11/15/17 PLAN: Progress with AROM and limited strengthening exercise.
--- NOTE | 2017-09-24 14:49 | RS.OPPTDN ---
Subjective Date of Note: 09/24/17 Visit #: 15 Date of Evaluation: 08/23/17 Payer Source: Insurance Treatment Diagnosis: Right shoulder pain, shoulder stiffness, s/p shoulder surgery Current Subjective/complaints:: Patient reports he is working on overhead pulleys at home. Reports he is doing better with active reaching at low level. *Precautions: Biceps Tenodesis Pain Assessment - Pain Description Pain Location: right shoulder and upper arm Current Pain Intensity: mild Interventions - Exercise/Activities/Manual Therapy Exercises/Activities: In sitting, scap retraction with red theraband for wand. In supine, PROM and AAROM to right shoulder, including limited IR and ER. In supine, scap protraction/retraction and depression/elevation with UE supported. Active biceps curls and flexion. Isometric shoulder add, abd, ext, and flex with arm at side. With shoulder at 90 degrees and elbow locked in full ext, isometric flex, ext, add, and abd. Isometric bilateral IR with ball. Ball overhead for short range flex. Wand for shoulder flex/ext and chest press. Started 3# wand for chest press. Isometric shoulder add, ext, abd, and flexion. In sitting, light wand for bilateral shoulder flexion to 90 degrees and biceps curl. Red theraband for scap retraction. Assisted horz abd and add, and flexion , scaption, and abduction, sets of 5reps. Scapular retraction and elevation/ depression. Ball on the wall with bilateral UE and then with right for small range movements. Total minutes of Exercise: 43mins Manual Therapy: NA HOME EXERCISE PROGRAM: gentle scapula ROM with sling on,, Codmans, cervical retraction, cervical lateral flexion. Table slides. Isometric shoulder flex, ext , add, and abd. Overhead shoulder pulleys. Wand for shoulder flexion to shoulder height in sitting. Cuff series, no weight. - Objective Findings Observations,measurements,etc.: Passive right shoulder flexion to 144 degrees. - Charges Timed Code Treatment Minutes: 43mins Total Treatment Time: 43mins Procedures billed for this date of service:: EX3 Assessment: Patient progressing with AROM and light strengtheing exercise. Patient Education: Body/Joint mechanics, Home Exercise Program Patient demonstrates compliance with HEP?: Yes Short Term Goals Goal #1: Pt independent and compliant with HEP and surgery precautions. Goal to be met by: 09/06/17 Progress towards Goal:: Met Goal #2: Right elbow PROM WFL's. Goal to be met by: 09/06/17 Progress towards Goal:: Met Goal #3: Right shoulder PROM WFL's. Goal to be met by: 09/06/17 Progress towards Goal:: Partially Met Goal #4: Pt will demonstrates good postural awareness. Goal to be met by: 09/06/17 Progress towards Goal:: Partially Met Early Childhood Education Coordinator Goals Goal #1: Pt knows HEP and to continue ex's to maintain level of function at D/C. Goal to be met by: 11/15/17 Progress towards goal: Progressing Goal #2: Score on UE functional scale improved to 65/80. Goal to be met by: 11/15/17 Goal #3: Right shoulder AROM WFL's to perform all selfcare and ADL's. Goal to be met by: 11/15/17 Progress towards goal: Progressing Goal #4: Pt able to perform all functional reaching without pain. Goal to be met by: 11/15/17 Plan PLAN OF CARE EXPIRES ON:: 11/15/17 ORDER # VISITS AND/OR THROUGH DATE: 11/15/17 PLAN: Progress with AROM and gentle strengthening exercise to increase patients functional use of the right UE.
--- NOTE | 2017-09-27 11:06 | RS.CXNS ---
Date of scheduled appointment: 09/27/17 Type: Cancel
--- NOTE | 2017-09-29 11:52 | RS.OPPTDN ---
Subjective Date of Note: 09/29/17 Visit #: 16 Date of Evaluation: 08/23/17 Payer Source: Insurance Treatment Diagnosis: Right shoulder pain, shoulder stiffness, s/p shoulder surgery Current Subjective/complaints:: Patient reports he has made progress with active reaching this week. *Precautions: Biceps Tenodesis Pain Assessment - Pain Description Pain Location: Right shoulder and upper arm Pain Description: Tightness, Sharp, Aching Current Pain Intensity: no pain at rest Worst Pain Intensity: mod with end range motion/stretch Interventions - Exercise/Activities/Manual Therapy Exercises/Activities: In supine, PROM and AAROM to right shoulder, including IR and ER. In supine, scap protraction/retraction and depression/elevation with added red theraband for resistance. Active biceps curls and flexion. Isometric shoulder add, abd, ext, flex and IR, ER with arm at side. With shoulder at 90 degrees and elbow locked in full ext, isometric flex, ext, add, and abd. 3# wand for shoulder flex/ext and chest press. Yellow theraband for bilateral shoulder ER. Red theraband for UE diagonals and bilateral horz abduction. In sitting, light wand for bilateral shoulder flexion to 90 degrees and biceps curl. Red theraband for scap retraction. Assisted horz abd and add, and flexion , scaption, and abduction, sets of 5reps. Standing red theraband for resistive shoulder x4 directions, short range, 2s/10reps each. Doorway anterior chest stretch, 3 position. Total minutes of Exercise: 45mins Manual Therapy: NA HOME EXERCISE PROGRAM: gentle scapula ROM with sling on,, Codmans, cervical retraction, cervical lateral flexion. Table slides. Isometric shoulder flex, ext , add, and abd. Overhead shoulder pulleys. Wand for shoulder flexion to shoulder height in sitting. Cuff series, no weight. - Charges Timed Code Treatment Minutes: 45mins Total Treatment Time: 45mins Procedures billed for this date of service:: EX3 Assessment: Patient progressing with AROM and progressive strengthening. Patient Education: Body/Joint mechanics, Home Exercise Program, Home Safety, Activity Modification Patient demonstrates compliance with HEP?: Yes Short Term Goals Goal #1: Pt independent and compliant with HEP and surgery precautions. Goal to be met by: 09/06/17 Progress towards Goal:: Met Goal #2: Right elbow PROM WFL's. Goal to be met by: 09/06/17 Progress towards Goal:: Met Goal #3: Right shoulder PROM WFL's. Goal to be met by: 09/06/17 Progress towards Goal:: Partially Met Goal #4: Pt will demonstrates good postural awareness. 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 Goal to be met by: 11/15/17 Progress towards goal: Progressing Goal #2: Score on UE functional scale improved to 65/80. Goal to be met by: 11/15/17 Goal #3: Right shoulder AROM WFL's to perform all selfcare and ADL's. Goal to be met by: 11/15/17 Progress towards goal: Progressing Goal #4: Pt able to perform all functional reaching without pain. Goal to be met by: 11/15/17 Progress towards goal: Progressing Plan PLAN OF CARE EXPIRES ON:: 11/15/17 ORDER # VISITS AND/OR THROUGH DATE: 11/15/17 PLAN: Progress per protocol.
--- NOTE | 2017-10-01 10:58 | RS.OPPTDN ---
Subjective Date of Note: 10/01/17 Visit #: 17 Date of Evaluation: 08/23/17 Payer Source: Insurance Treatment Diagnosis: Right shoulder pain, shoulder stiffness, s/p shoulder surgery Current Subjective/complaints:: Patient reports resting better. States he is doing more reaching. *Precautions: Biceps Tenodesis Pain Assessment - Pain Description Pain Location: Right shoulder Pain Description: Tightness Current Pain Intensity: no pain at rest Worst Pain Intensity: mild to mod at end range Interventions - Exercise/Activities/Manual Therapy Exercises/Activities: In supine, PROM and AAROM to right shoulder all directions. In supine, scap protraction/retraction and depression/elevation with added red theraband for resistance. Bilateral shoulder ext with red theraband and wand. Active biceps curls and flexion. Isometric shoulder add, abd, ext, flex and IR, ER with arm at side. With shoulder at 90 degrees and elbow locked in full ext, isometric flex, ext, add, and abd. 3# wand for shoulder flex/ext and chest press. Yellow theraband for bilateral shoulder ER. Red theraband for UE diagonals and bilateral horz abduction. In sitting, increased to 3# wand for bilateral shoulder flexion to 90 degrees and biceps curl. Red theraband for scap retraction. Active reaching. Ball on the wall. Standing red theraband for resistive shoulder x4 directions, short range, 2s/ 10reps each. Total minutes of Exercise: 40mins Manual Therapy: NA HOME EXERCISE PROGRAM: gentle scapula ROM with sling on,, Codmans, cervical retraction, cervical lateral flexion. Table slides. Isometric shoulder flex, ext , add, and abd. Overhead shoulder pulleys. Wand for shoulder flexion to shoulder height in sitting. Cuff series, no weight. - Charges Timed Code Treatment Minutes: 40mins Total Treatment Time: 40mins Procedures billed for this date of service:: EX3 Assessment: Patient progressing with light strengthening. Continues to have joint tightness and will need to progress ROM to return to PLOF. Patient Education: Home Exercise Program Patient demonstrates compliance with HEP?: Yes Short Term Goals Goal #1: Pt independent and compliant with HEP and surgery precautions. Goal to be met by: 09/06/17 Progress towards Goal:: Met Goal #2: Right elbow PROM WFL's. Goal to be met by: 09/06/17 Progress towards Goal:: Met Goal #3: Right shoulder PROM WFL's. Goal to be met by: 09/06/17 Progress towards Goal:: Partially Met Goal #4: Pt will demonstrates good postural awareness. 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 Goal to be met by: 11/15/17 Progress towards goal: Progressing Goal #2: Score on UE functional scale improved to 65/80. Goal to be met by: 11/15/17 Goal #3: Right shoulder AROM WFL's to perform all selfcare and ADL's. Goal to be met by: 11/15/17 Progress towards goal: Progressing Goal #4: Pt able to perform all functional reaching without pain. Goal to be met by: 11/15/17 Progress towards goal: Progressing Plan PLAN OF CARE EXPIRES ON:: 11/15/17 ORDER # VISITS AND/OR THROUGH DATE: 11/15/17 PLAN: Continue to progress ROM and gentle strengthening of the right shoulder, including biceps next week, per protocol.
--- NOTE | 2017-10-04 11:29 | RS.OPPTDN ---
Subjective Date of Note: 10/04/17 Visit #: 18 Date of Evaluation: 08/23/17 Payer Source: Insurance Treatment Diagnosis: Right shoulder pain, shoulder stiffness, s/p shoulder surgery Current Subjective/complaints:: Patient reports he did more work in his home over the weekend and right shoulder is sore. *Precautions: Biceps Tenodesis Pain Assessment - Pain Description Pain Location: Right shoulder and upper arm Pain Description: sore Current Pain Intensity: mild to mod Interventions - Exercise/Activities/Manual Therapy Exercises/Activities: In supine, PROM and AAROM to right shoulder all directions. In supine, bilateral shoulder flexion and ext with red theraband and wand. Red theraband for biceps curl. Isometric shoulder add, abd, ext, flex and IR, ER with arm at side. With shoulder at 90 degrees and elbow locked in full ext, isometric flex, ext, add, and abd. 3# wand for shoulder flex/ext and chest press. Red theraband for bilateral shoulder ER, UE diagonals, and bilateral horz abduction. In sitting, increased to 3# wand for bilateral shoulder flexion to 90 degrees and biceps curl. Green theraband for scap retraction. Active reaching, chest pass, and overhead pass with light ball. Standing red theraband for shoulder x4 directions, short range, 2s/10reps each. Cuff series with 1#, 2s/10reps each direction. Ended with additional PROM/ stretching. Total minutes of Exercise: 40mins Manual Therapy: light tissue mob along biceps and friction massage to incision line at anterior shoulder joint. Total minutes of Manual Therapy: 3mins HOME EXERCISE PROGRAM: gentle scapula ROM with sling on,, Codmans, cervical retraction, cervical lateral flexion. Table slides. Isometric shoulder flex, ext , add, and abd. Overhead shoulder pulleys. Wand for shoulder flexion to shoulder height in sitting. Cuff series, no weight. - Charges Timed Code Treatment Minutes: 43mins Total Treatment Time: 43mins Procedures billed for this date of service:: EX3 Assessment: Patient progessing well with strengthening. PROM continues to be limited at end range. Patient Education: Home Exercise Program Patient demonstrates compliance with HEP?: Yes Short Term Goals Goal #1: Pt independent and compliant with HEP and surgery precautions. Goal to be met by: 09/06/17 Progress towards Goal:: Met Goal #2: Right elbow PROM WFL's. Goal to be met by: 09/06/17 Progress towards Goal:: Met Goal #3: Right shoulder PROM WFL's. Goal to be met by: 09/06/17 Progress towards Goal:: Partially Met Goal #4: Pt will demonstrates good postural awareness. Goal to be met by: 09/06/17 Progress towards Goal:: Partially Met Care Home Goals Goal #1: Pt knows HEP and to continue ex's to maintain level of function at D/C. Goal to be met by: 11/15/17 Progress towards goal: Progressing Goal #2: Score on UE functional scale improved to 65/80. Goal to be met by: 11/15/17 Goal #3: Right shoulder AROM WFL's to perform all selfcare and ADL's. Goal to be met by: 11/15/17 Progress towards goal: Progressing Goal #4: Pt able to perform all functional reaching without pain. Goal to be met by: 11/15/17 Progress towards goal: Progressing Plan PLAN OF CARE EXPIRES ON:: 11/15/17 ORDER # VISITS AND/OR THROUGH DATE: 11/15/17 PLAN: Continue to progress ROM and gentle strengthening.
== END 2017-10-05 23:59 ==
PROVIDERS: ATTEND Orthopaedic Surgery
DX: S43.431D Superior glenoid labrum lesion of right shoulder, subsequent encounter (principal); M25.611 Stiffness of right shoulder, not elsewhere classified; G89.18 Other acute postprocedural pain; M25.511 Pain in right shoulder; Z98.890 Other specified postprocedural states

== ENCOUNTER 2017-11-05 11:00 | Outpatient (RCR) ==
--- NOTE | 2017-10-06 09:27 | RS.OPPTDN ---
Subjective Date of Note: 10/06/17 Visit #: 19 Date of Evaluation: 08/23/17 Payer Source: Insurance Treatment Diagnosis: Right shoulder pain, shoulder stiffness, s/p shoulder surgery Current Subjective/complaints:: Patient reports continued discomfort when the shoulder gets to a certain point with flexion, abduction, and ER. States if feels stiff and is painful. State he has not had a lot of time to work on HEP due to renovating their home. He uses the left UE as much as he can to protect the right UE. Reports pain in the area of the supraspinatus muscle belly while performing bilateral shoulder flexion with 3# wand in sitting. *Precautions: Biceps Tenodesis Interventions - Exercise/Activities/Manual Therapy Exercises/Activities: In supine, PROM and AAROM to right shoulder all directions. In supine, bilateral shoulder flexion and ext with red theraband and wand. Yellow theraband for biceps curl. Isometric shoulder add, abd, ext, flex and IR, ER with arm at side. With shoulder at 90 degrees and elbow locked in full ext, isometric flex, ext, add, and abd. 3# wand for shoulder flex/ext and chest press. Red theraband for bilateral shoulder ER, UE diagonals, and bilateral horz abduction. Ball toss in the air in supine. In sitting, 3# wand for bilateral shoulder flexion to 90 degrees and biceps curl. Green theraband for scap retraction. Cuff series with 1#, 2s/10reps each direction. Ball on the wall with right shoulder at 80 degrees flexion ~ 30-45 secs. Total minutes of Exercise: X 47 mins Manual Therapy: NA HOME EXERCISE PROGRAM: gentle scapula ROM with sling on,, Codmans, cervical retraction, cervical lateral flexion. Table slides. Isometric shoulder flex, ext , add, and abd. Overhead shoulder pulleys. Wand for shoulder flexion to shoulder height in sitting. Cuff series, no weight. - Objective Findings Observations,measurements,etc.: Demonstrates consistent reports of pain with passive or active ROM at ~ 100 degrees of flexion or abduction, and with ER to ~ 50 degrees in supine or sitting. Tolerates slightly more ROM before pain in pendulum position. Demonstrates a soft endfeel in all directions. - Charges Timed Code Treatment Minutes: 47 mins Total Treatment Time: 47 mins Procedures billed for this date of service:: Ex3 Assessment: Wilder presents to be progressing well with resistive activities for shoulder and biceps. He has limited active and passive ROM due to consistent pain at ~ 100 degrees flexion and abduction. ER also limited due to pain. Patient Education: Education of diagnosis, Body/Joint mechanics, Home Exercise Program, Activity Modification Short Term Goals Goal #1: Pt independent and compliant with HEP and surgery precautions. Goal to be met by: 09/06/17 Progress towards Goal:: Met Goal #2: Right shoulder strength 4+/5 in available range. Goal to be met by: 10/20/17 Goal #3: Right shoulder PROM WFL's. Goal to be met by: 09/06/17 Progress towards Goal:: Partially Met Comments:: Pain limits ROM into flexion, abduction, and ER. Goal #4: Pt will demonstrates good postural awareness. Goal to be met by: 09/06/17 Progress towards Goal:: Partially Met Intermediate Goals Goal #1: Pt knows HEP and to continue ex's to maintain level of function at D/C. Goal to be met by: 11/15/17 Progress towards goal: Progressing Goal #2: Score on UE functional scale improved to 65/80. Goal to be met by: 11/15/17 Goal #3: Right shoulder AROM WFL's to perform all selfcare and ADL's. Goal to be met by: 11/15/17 Progress towards goal: Progressing Goal #4: Pt able to perform all functional reaching without pain. Goal to be met by: 11/15/17 Progress towards goal: Progressing Plan PLAN OF CARE EXPIRES ON:: 11/15/17 ORDER # VISITS AND/OR THROUGH DATE: 11/15/17 PLAN: Continue to progress ROM and strengthening exercises to regain functional , pain-free AROM of the right shoulder.
--- NOTE | 2017-10-08 13:33 | RS.OPPTDN ---
Subjective Date of Note: 10/08/17 Visit #: 20 Date of Evaluation: 08/23/17 Payer Source: Insurance Treatment Diagnosis: Right shoulder pain, shoulder stiffness, s/p shoulder surgery Current Subjective/complaints:: States he is tired today. His grandson slept in the bed with him, so he didn't get much sleep. Reports soreness directly over the clavicle, just lateral to the SC joint on the right. Continues to report discomfort with end range flexion, abduction, and ER. States he hopes to get to go back to work soon. *Precautions: Biceps Tenodesis Interventions - Exercise/Activities/Manual Therapy Exercises/Activities: In supine, PROM and AAROM to right shoulder all directions. In supine, bilateral shoulder flexion and ext with red theraband and wand. Yellow theraband for biceps curl. Isometric shoulder add, abd, ext, flex and IR, ER with arm at side. With shoulder at 90 degrees and elbow locked in full ext, isometric flex, ext, add, and abd. 3# wand for shoulder flex/ext and chest press. Red theraband for bilateral shoulder ER, UE diagonals, and bilateral horz abduction. Ball toss in the air in supine. In sitting, 3# wand for bilateral shoulder flexion to 90 degrees and biceps curl. Green theraband for scap retraction. Cuff series with 1#, 2s/10reps each direction. Ball toss from chest height and then from overhead. Ball on the wall with right shoulder at 80 degrees flexion for 1 min. X 2 reps. Manual Therapy: NA HOME EXERCISE PROGRAM: gentle scapula ROM with sling on,, Codmans, cervical retraction, cervical lateral flexion. Table slides. Isometric shoulder flex, ext , add, and abd. Overhead shoulder pulleys. Wand for shoulder flexion to shoulder height in sitting. Cuff series, no weight. - Objective Findings Observations,measurements,etc.: AROM with wand for bilateral shoulder flexion 135 degrees with reports of pain at endrange. - Charges Timed Code Treatment Minutes: 46 mins Total Treatment Time: 46 mins Procedures billed for this date of service:: EX 3 Assessment: Patient with continued consistent reports of discomfort in the right shoulder limiting both Active and Passive ROM. Demonstrates good tolerance for strengthening activities and is motivated to return to work. Demonstrates the need for greater strength in the right UE for daily activities and work with what is his dominant UE. Short Term Goals Goal #1: Pt independent and compliant with HEP and surgery precautions. Goal to be met by: 09/06/17 Progress towards Goal:: Met Goal #2: Right shoulder strength 4+/5 in available range. Goal to be met by: 10/20/17 Progress towards Goal:: Progressing Goal #3: Right shoulder PROM WFL's. Goal to be met by: 09/06/17 Progress towards Goal:: Partially Met Goal #4: Pt will demonstrates good postural awareness. Goal to be met by: 09/06/17 Progress towards Goal:: Partially Met [employer] Goals Goal #1: Pt knows HEP and to continue ex's to maintain level of function at D/C. Goal to be met by: 11/15/17 Progress towards goal: Progressing Goal #2: Score on UE functional scale improved to 65/80. Goal to be met by: 11/15/17 Goal #3: Right shoulder AROM WFL's to perform all selfcare and ADL's. Goal to be met by: 11/15/17 Progress towards goal: Progressing Goal #4: Pt able to perform all functional reaching without pain. Goal to be met by: 11/15/17 Progress towards goal: Progressing Plan PLAN OF CARE EXPIRES ON:: 11/15/17 ORDER # VISITS AND/OR THROUGH DATE: 11/15/17 PLAN: Progress ROM and strengthening as tolerated.
--- NOTE | 2017-10-11 13:32 | RS.OPPTDN ---
Subjective Date of Note: 10/11/17 Visit #: 21 Date of Evaluation: 08/23/17 Payer Source: Insurance Treatment Diagnosis: Right shoulder pain, shoulder stiffness, s/p shoulder surgery Current Subjective/complaints:: Patient says he is improving functionally, but he is concerned over the R SC joint. He c/o R sided clavicle pain and feels it is protruding. *Precautions: Biceps Tenodesis Interventions - Exercise/Activities/Manual Therapy Exercises/Activities: In supine, PROM and AAROM to right shoulder all directions. In supine, bilateral shoulder flexion and ext with red theraband and wand. Progressed to red theraband for biceps curl. Isometric shoulder add, abd, ext, flex and IR, ER with arm at side. With shoulder at 90 degrees and elbow locked in full ext, isometric flex, ext, add, and abd. 3# wand for shoulder flex/ext and chest press. Red theraband for bilateral shoulder ER, UE diagonals, and bilateral horz abduction. Ball toss in the air in supine. In sitting, 3# wand for bilateral shoulder flexion to 90 degrees and biceps curl. Green theraband for scap retraction. Cuff series with 1#, 2s/10reps each direction. Ball toss from chest height and then from overhead. Ball on the wall with right shoulder at 80 degrees flexion for 1 min. X 2 reps. Total minutes of Exercise: 38 Manual Therapy: NA HOME EXERCISE PROGRAM: gentle scapula ROM with sling on,, Codmans, cervical retraction, cervical lateral flexion. Table slides. Isometric shoulder flex, ext , add, and abd. Overhead shoulder pulleys. Wand for shoulder flexion to shoulder height in sitting. Cuff series, no weight. - Charges Timed Code Treatment Minutes: 38 Total Treatment Time: 38 Procedures billed for this date of service:: ex3 Assessment: Patient progressing with all therex. He is having soreness with bilateral shoulder ER tband exercises at the SC joint, so we did lessen reps and allowed rest time. Patient Education: Body/Joint mechanics, Home Exercise Program Patient demonstrates compliance with HEP?: Yes Short Term Goals Goal #1: Pt independent and compliant with HEP and surgery precautions. Goal to be met by: 09/06/17 Progress towards Goal:: Met Goal #2: Right shoulder strength 4+/5 in available range. Goal to be met by: 10/20/17 Progress towards Goal:: Progressing Goal #3: Right shoulder PROM WFL's. Goal to be met by: 09/06/17 Progress towards Goal:: Partially Met Goal #4: Pt will demonstrates good postural awareness. Goal to be met by: 09/06/17 Progress towards Goal:: Partially Met Oceanography Professor Goals Goal #1: Pt knows HEP and to continue ex's to maintain level of function at D/C. Goal to be met by: 11/15/17 Progress towards goal: Progressing Goal #2: Score on UE functional scale improved to 65/80. Goal to be met by: 11/15/17 Goal #3: Right shoulder AROM WFL's to perform all selfcare and ADL's. Goal to be met by: 11/15/17 Progress towards goal: Progressing Goal #4: Pt able to perform all functional reaching without pain. Goal to be met by: 11/15/17 Progress towards goal: Progressing Plan PLAN OF CARE EXPIRES ON:: 11/15/17 ORDER # VISITS AND/OR THROUGH DATE: 11/15/17 PLAN: Patient to continue progressing therex
--- NOTE | 2017-10-13 16:10 | RS.OPPTDN ---
Subjective Date of Note: 10/13/17 Visit #: 22 Date of Evaluation: 08/23/17 Payer Source: Insurance Treatment Diagnosis: Right shoulder pain, shoulder stiffness, s/p shoulder surgery Current Subjective/complaints:: Patient reports discomfort the last several days at the proximal third of the right clavicle. Following discussion, patient agrees to contact his physicians office to report problem. *Precautions: Biceps Tenodesis Pain Assessment - Pain Description Pain Location: Right shoulder, right clavicle Current Pain Intensity: mild to mod at right clavicle Interventions - Exercise/Activities/Manual Therapy Exercises/Activities: In supine, PROM and AAROM to right shoulder all directions. In supine, bilateral shoulder flexion and ext with red theraband and wand. Progressed to red theraband for biceps curl. Isometric shoulder add, abd, ext, flex and IR, ER with arm at side. With shoulder at 90 degrees and elbow locked in full ext, isometric flex, ext, add, and abd. 5# wand for shoulder flex/ext and chest press. Red theraband for bilateral shoulder ER, UE diagonals, and bilateral horz abduction. In sitting, 3# wand for bilateral shoulder flexion to 90 degrees and biceps curl. Stopped exercise session early due to discomfort at right clavicle with right UE reaching at or above shoulder height. Total minutes of Exercise: 35mins Manual Therapy: NA HOME EXERCISE PROGRAM: gentle scapula ROM with sling on,, Codmans, cervical retraction, cervical lateral flexion. Table slides. Isometric shoulder flex, ext , add, and abd. Overhead shoulder pulleys. Wand for shoulder flexion to shoulder height in sitting. Cuff series, no weight. - Charges Timed Code Treatment Minutes: 35mins Total Treatment Time: 35mins Procedures billed for this date of service:: EX2 Assessment: Patient with increased discomfort today. He will contact physicians office to report this new problem. Patient Education: Home Exercise Program, Home Safety Patient demonstrates compliance with HEP?: Yes Short Term Goals Goal #1: Pt independent and compliant with HEP and surgery precautions. Goal to be met by: 09/06/17 Progress towards Goal:: Met Goal #2: Right shoulder strength 4+/5 in available range. Goal to be met by: 10/20/17 Progress towards Goal:: Progressing Goal #3: Right shoulder PROM WFL's. Goal to be met by: 09/06/17 Progress towards Goal:: Partially Met Goal #4: Pt will demonstrates good postural awareness. Goal to be met by: 09/06/17 Progress towards Goal:: Partially Met Inside Sales Territory Manager Goals Goal #1: Pt knows HEP and to continue ex's to maintain level of function at D/C. Goal to be met by: 11/15/17 Progress towards goal: Progressing Goal #2: Score on UE functional scale improved to 65/80. Goal to be met by: 11/15/17 Goal #3: Right shoulder AROM WFL's to perform all selfcare and ADL's. Goal to be met by: 11/15/17 Progress towards goal: Progressing Goal #4: Pt able to perform all functional reaching without pain. Goal to be met by: 11/15/17 Progress towards goal: Progressing Plan PLAN OF CARE EXPIRES ON:: 11/15/17 ORDER # VISITS AND/OR THROUGH DATE: 11/15/17 PLAN: Continue this week unless physicians office holds treatment.
--- NOTE | 2017-10-15 11:45 | RS.OPPTDN ---
Subjective Date of Note: 10/15/17 Visit #: 23 Date of Evaluation: 08/23/17 Payer Source: Insurance Treatment Diagnosis: Right shoulder pain, shoulder stiffness, s/p shoulder surgery Current Subjective/complaints:: Patient reports he was seen by PA and was cleared to continue therapy. He was advised that his proximal clavicle pain is not affecting the right shoulder and he may continue to progress strengthening per protocol. *Precautions: Biceps Tenodesis Pain Assessment - Pain Description Pain Location: Right shoulder and upper arm Pain Description: Tightness, Aching Current Pain Intensity: mild with exercise and end range PROM Interventions - Exercise/Activities/Manual Therapy Exercises/Activities: In supine, PROM and AAROM to right shoulder all directions. In supine, bilateral shoulder flexion and ext with red theraband and wand. Isometric shoulder add, abd, ext, flex and IR, ER with arm at side. With shoulder at 90 degrees and elbow locked in full ext, isometric flex, ext, add, and abd. 5# wand for shoulder flex/ext and chest press. Red theraband for bilateral shoulder ER, UE diagonals, and bilateral horz abduction. In sitting, 3 # wand for bilateral shoulder flexion to 90 degrees and biceps curl. AA right shoulder flexion. In standing, red theraband for shoulder x4 deirection. Ball on the wall. Cuff series with 2# dumbell. Cable pulleys for scap retraction 20# and bilateral shoulder extension 10#, 2s/10reps each. Total minutes of Exercise: 44mins Manual Therapy: NA HOME EXERCISE PROGRAM: gentle scapula ROM with sling on,, Codmans, cervical retraction, cervical lateral flexion. Table slides. Isometric shoulder flex, ext , add, and abd. Overhead shoulder pulleys. Wand for shoulder flexion to shoulder height in sitting. Cuff series, no weight. - Charges Timed Code Treatment Minutes: 44mins Total Treatment Time: 44mins Procedures billed for this date of service:: EX3 Assessment: Patient progressing with strengthening but continues to have tightness at joint end range. Patient Education: Home Exercise Program Patient demonstrates compliance with HEP?: Yes Short Term Goals Goal #1: Pt independent and compliant with HEP and surgery precautions. Goal to be met by: 09/06/17 Progress towards Goal:: Met Goal #2: Right shoulder strength 4+/5 in available range. Goal to be met by: 10/20/17 Progress towards Goal:: Progressing Goal #3: Right shoulder PROM WFL's. Goal to be met by: 09/06/17 Progress towards Goal:: Partially Met Goal #4: Pt will demonstrates good postural awareness. Goal to be met by: 09/06/17 Progress towards Goal:: Partially Met Shelter Goals Goal #1: Pt knows HEP and to continue ex's to maintain level of function at D/C. Goal to be met by: 11/15/17 Progress towards goal: Progressing Goal #2: Score on UE functional scale improved to 65/80. Goal to be met by: 11/15/17 Goal #3: Right shoulder AROM WFL's to perform all selfcare and ADL's. Goal to be met by: 11/15/17 Progress towards goal: Progressing Goal #4: Pt able to perform all functional reaching without pain. Goal to be met by: 11/15/17 Progress towards goal: Progressing Plan PLAN OF CARE EXPIRES ON:: 11/15/17 ORDER # VISITS AND/OR THROUGH DATE: 11/15/17 PLAN: Continue progression of strengthening and ROM of the right shoulder.
--- NOTE | 2017-10-18 11:36 | RS.OPPTDN ---
Subjective Date of Note: 10/18/17 Visit #: 24 Date of Evaluation: 08/23/17 Payer Source: Insurance Treatment Diagnosis: Right shoulder pain, shoulder stiffness, s/p shoulder surgery Current Subjective/complaints:: Patient reports right shoulder ROM seems to have improved over the weekend. Reports using caution with daily activities, but trying to use the right UE more. *Precautions: Biceps Tenodesis Pain Assessment - Pain Description Pain Location: Right shoulder Pain Description: Tightness Current Pain Intensity: mild to mod with end range stretching Interventions - Exercise/Activities/Manual Therapy Exercises/Activities: In supine, PROM and AAROM to right shoulder all directions. In supine, bilateral shoulder flexion and ext with red theraband and wand. Isometric shoulder add, abd, ext, flex and IR, ER with arm at side. With shoulder at 90 degrees and elbow locked in full ext, isometric flex, ext, add, and abd. Red theraband for bilateral shoulder ER, UE diagonals, and bilateral horz abduction. In sitting, AA right shoulder flexion, scaption, and abd. In standing, red theraband for shoulder x4 deirection. Increased to large exercise ball for ball on the wall ex, increasing ROM with horz abd and add. Cuff series with increased to 3# dumbell. Cable pulleys for scap retraction 20# and bilateral shoulder extension 10#, 2s/10reps each. Total minutes of Exercise: 43mins Manual Therapy: NA HOME EXERCISE PROGRAM: gentle scapula ROM with sling on,, Codmans, cervical retraction, cervical lateral flexion. Table slides. Isometric shoulder flex, ext , add, and abd. Overhead shoulder pulleys. Wand for shoulder flexion to shoulder height in sitting. Cuff series, no weight. - Charges Timed Code Treatment Minutes: 43mins Total Treatment Time: 45mins Procedures billed for this date of service:: EX3 Assessment: Patient progressing with strength and ROM of the right UE and reporting increase in functional use. Patient Education: Home Exercise Program Patient demonstrates compliance with HEP?: Yes Short Term Goals Goal #1: Pt independent and compliant with HEP and surgery precautions. Goal to be met by: 09/06/17 Progress towards Goal:: Met Goal #2: Right shoulder strength 4+/5 in available range. Goal to be met by: 10/20/17 Progress towards Goal:: Progressing Goal #3: Right shoulder PROM WFL's. Goal to be met by: 09/06/17 Progress towards Goal:: Partially Met Goal #4: Pt will demonstrates good postural awareness. Goal to be met by: 09/06/17 Progress towards Goal:: Partially Met Programming Development Project Manager Goals Goal #1: Pt knows HEP and to continue ex's to maintain level of function at D/C. Goal to be met by: 11/15/17 Progress towards goal: Progressing Goal #2: Score on UE functional scale improved to 65/80. Goal to be met by: 11/15/17 Goal #3: Right shoulder AROM WFL's to perform all selfcare and ADL's. Goal to be met by: 11/15/17 Progress towards goal: Progressing Goal #4: Pt able to perform all functional reaching without pain. Goal to be met by: 11/15/17 Progress towards goal: Progressing Plan PLAN OF CARE EXPIRES ON:: 11/15/17 ORDER # VISITS AND/OR THROUGH DATE: 11/15/17 PLAN: Progress per protocol.
--- NOTE | 2017-10-20 13:59 | RS.OPPTDN ---
Subjective Date of Note: 10/20/17 Visit #: 25 Date of Evaluation: 08/23/17 Payer Source: Insurance Treatment Diagnosis: Right shoulder pain, shoulder stiffness, s/p shoulder surgery Current Subjective/complaints:: Patient reports continued improvement in reaching and light strengthening. *Precautions: Biceps Tenodesis Pain Assessment - Pain Description Pain Location: Right shoulder Pain Description: Tightness Current Pain Intensity: mild Interventions - Exercise/Activities/Manual Therapy Exercises/Activities: In supine, PROM and AAROM to right shoulder all directions. In supine, bilateral shoulder flexion and ext with red theraband and wand. Isometric shoulder add, abd, ext, flex and IR, ER with arm at side. With shoulder at 90 degrees and elbow locked in full ext, isometric flex, ext, add, and abd. Red theraband for bilateral shoulder ER, UE diagonals, and bilateral horz abduction. In sitting, 2# for resistive right shoulder flexion, scaption, and abd. In standing, red theraband for shoulder x4 direction. Large exercise ball for ball on the wall ex, increasing ROM with horz abd and add. Cuff series with increased to 3# dumbell. Cable pulleys for scap retraction 20# and bilateral shoulder extension 10#, 2s/10reps each. 2# ball for shot-putt and limited overhanded throw. Red theraband for overhead right shoulder extension/ "baseball throw" movement. Bouncing small ball off wall. Total minutes of Exercise: 45mins Manual Therapy: NA HOME EXERCISE PROGRAM: gentle scapula ROM with sling on,, Codmans, cervical retraction, cervical lateral flexion. Table slides. Isometric shoulder flex, ext , add, and abd. Overhead shoulder pulleys. Wand for shoulder flexion to shoulder height in sitting. Cuff series, no weight. - Charges Timed Code Treatment Minutes: 45mins Total Treatment Time: 45mins Procedures billed for this date of service:: EX3 Assessment: Patient progressing with overhead activity and resistive exercise. Patient Education: Home Exercise Program Patient demonstrates compliance with HEP?: Yes Short Term Goals Goal #1: Pt independent and compliant with HEP and surgery precautions. Goal to be met by: 09/06/17 Progress towards Goal:: Met Goal #2: Right shoulder strength 4+/5 in available range. Goal to be met by: 10/20/17 Progress towards Goal:: Progressing Goal #3: Right shoulder PROM WFL's. Goal to be met by: 09/06/17 Progress towards Goal:: Partially Met Goal #4: Pt will demonstrates good postural awareness. Goal to be met by: 09/06/17 Progress towards Goal:: Partially Met Blocker Polishing Goals Goal #1: Pt knows HEP and to continue ex's to maintain level of function at D/C. Goal to be met by: 11/15/17 Progress towards goal: Progressing Goal #2: Score on UE functional scale improved to 65/80. Goal to be met by: 11/15/17 Goal #3: Right shoulder AROM WFL's to perform all selfcare and ADL's. Goal to be met by: 11/15/17 Progress towards goal: Progressing Goal #4: Pt able to perform all functional reaching without pain. Goal to be met by: 11/15/17 Progress towards goal: Progressing Plan PLAN OF CARE EXPIRES ON:: 11/15/17 ORDER # VISITS AND/OR THROUGH DATE: 11/15/17 PLAN: Continue to progress strengthening to increase patients functional activity level.
--- NOTE | 2017-10-22 10:26 | RS.OPPTDN ---
Subjective Date of Note: 10/22/17 Visit #: 26 Date of Evaluation: 08/23/17 Payer Source: Insurance Treatment Diagnosis: Right shoulder pain, shoulder stiffness, s/p shoulder surgery Current Subjective/complaints:: Patient reports right shoulder joint is tight at end range, but he continues to gain strength below shoulder height. *Precautions: Biceps Tenodesis Interventions - Exercise/Activities/Manual Therapy Exercises/Activities: In supine, PROM and AAROM to right shoulder all directions. Isometric shoulder add, abd, ext, flex with shoulder at 90 degrees and elbow locked in full ext. Isometric shoulder IR and ER with arm at side. Increased to green theraband for right shoulder flex, ext, IR, ER, and chest press. In sitting, 2# for resistive right shoulder flexion, scaption, and abd, sets of 5 reps. In standing, increased to green theraband for shoulder x4 direction. Large exercise ball for ball on the wall ex, added 2# to right wrist. Cuff series with to 3# dumbell. Cable pulleys for scap retraction increased to 30# and bilateral shoulder extension increased to 20#, 2s/10reps each. Began cable with 10# for right forward chest press. Singe right UE ball on the wall with 2#. Wall push-ups. Total minutes of Exercise: 46mins Manual Therapy: NA HOME EXERCISE PROGRAM: gentle scapula ROM with sling on,, Codmans, cervical retraction, cervical lateral flexion. Table slides. Isometric shoulder flex, ext , add, and abd. Overhead shoulder pulleys. Wand for shoulder flexion to shoulder height in sitting. Cuff series, no weight. - Objective Findings Observations,measurements,etc.: Active right shoulder flexion to 142 degrees in standing. - Charges Timed Code Treatment Minutes: 46mins Total Treatment Time: 46mins Procedures billed for this date of service:: EX3 Assessment: Patient progressing with strength and use of the right UE. Will benefit from focus on end range stretching to increase shoulder ROM. Patient Education: Home Exercise Program Patient demonstrates compliance with HEP?: Yes Short Term Goals Goal #1: Pt independent and compliant with HEP and surgery precautions. Goal to be met by: 09/06/17 Progress towards Goal:: Met Goal #2: Right shoulder strength 4+/5 in available range. Goal to be met by: 10/20/17 Progress towards Goal:: Partially Met Goal #3: Right shoulder PROM WFL's. Goal to be met by: 09/06/17 Progress towards Goal:: Partially Met Goal #4: Pt will demonstrates good postural awareness. Goal to be met by: 09/06/17 Progress towards Goal:: Partially Met Tobacco Prizer Goals Goal #1: Pt knows HEP and to continue ex's to maintain level of function at D/C. Goal to be met by: 11/15/17 Progress towards goal: Progressing Goal #2: Score on UE functional scale improved to 65/80. Goal to be met by: 11/15/17 Goal #3: Right shoulder AROM WFL's to perform all selfcare and ADL's. Goal to be met by: 11/15/17 Progress towards goal: Partially Met Goal #4: Pt able to perform all functional reaching without pain. Goal to be met by: 11/15/17 Progress towards goal: Progressing Plan PLAN OF CARE EXPIRES ON:: 11/15/17 ORDER # VISITS AND/OR THROUGH DATE: 11/15/17 PLAN: Continue progression of ROM and strengthening to increase functional use of the right UE.
--- NOTE | 2017-10-25 14:56 | RS.OPPTDN ---
Subjective Date of Note: 10/25/17 Visit #: 27 Date of Evaluation: 08/23/17 Payer Source: Insurance Treatment Diagnosis: Right shoulder pain, shoulder stiffness, s/p shoulder surgery Current Subjective/complaints:: Patient reports doing well with strengthening today, but continues to have discomfort and slight swelling at the proximal right clavicle. *Precautions: Biceps Tenodesis Pain Assessment - Pain Description Pain Location: Right shoulder joint and proximal clavicle Pain Description: Dull, Aching Interventions - Exercise/Activities/Manual Therapy Exercises/Activities: In supine, PROM and AAROM to right shoulder all directions. Isometric shoulder add, abd, ext, flex with shoulder at 90 degrees and elbow locked in full ext. Isometric shoulder IR and ER with arm at side. Green theraband for right shoulder flex, ext, IR, ER, and chest press. In sitting, 2# for resistive right shoulder flexion, scaption, and abd, sets of 5 reps. In standing, increased to green theraband for shoulder x4 direction. 2# to right wrist for reaching act. Cuff series with to 4# dumbell. Cable pulleys for scap retraction 30# and bilateral shoulder extension increased to 20#, 2s/ 10reps each. Cable with 10# for right forward chest press. Singe right UE ball on the wall with 2#. Total minutes of Exercise: 42mins Manual Therapy: NA HOME EXERCISE PROGRAM: gentle scapula ROM with sling on,, Codmans, cervical retraction, cervical lateral flexion. Table slides. Isometric shoulder flex, ext , add, and abd. Overhead shoulder pulleys. Wand for shoulder flexion to shoulder height in sitting. Cuff series, no weight. - Charges Timed Code Treatment Minutes: 42mins Total Treatment Time: 42mins Procedures billed for this date of service:: EX3 Assessment: Patient progressing with ROM and strengthening. Patient Education: Body/Joint mechanics Patient demonstrates compliance with HEP?: Yes Short Term Goals Goal #1: Pt independent and compliant with HEP and surgery precautions. Goal to be met by: 09/06/17 Progress towards Goal:: Met Goal #2: Right shoulder strength 4+/5 in available range. Goal to be met by: 10/20/17 Progress towards Goal:: Partially Met Goal #3: Right shoulder PROM WFL's. Goal to be met by: 09/06/17 Progress towards Goal:: Partially Met Goal #4: Pt will demonstrates good postural awareness. 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 Goal to be met by: 11/15/17 Progress towards goal: Progressing Goal #2: Score on UE functional scale improved to 65/80. Goal to be met by: 11/15/17 Goal #3: Right shoulder AROM WFL's to perform all selfcare and ADL's. Goal to be met by: 11/15/17 Progress towards goal: Partially Met Goal #4: Pt able to perform all functional reaching without pain. Goal to be met by: 11/15/17 Progress towards goal: Progressing Plan PLAN OF CARE EXPIRES ON:: 11/15/17 ORDER # VISITS AND/OR THROUGH DATE: 11/15/17 PLAN: Progress per protocol
--- NOTE | 2017-10-27 09:38 | RS.OPPTDN ---
Subjective Date of Note: 10/27/17 Visit #: 28 Date of Evaluation: 08/23/17 Payer Source: Insurance Treatment Diagnosis: Right shoulder pain, shoulder stiffness, s/p shoulder surgery Current Subjective/complaints:: Patient reports continued discomfort limiting end range right shoulder joint. *Precautions: Biceps Tenodesis Pain Assessment - Pain Description Pain Location: right shoulder Pain Description: Tightness Current Pain Intensity: 0 at rest Other Comments regarding Pain:: mod to high with end range stretch Interventions - Exercise/Activities/Manual Therapy Exercises/Activities: In supine, increased time working on PROM and end range stretching. Isometric's right shoulder all directions including IR and ER, with arm at side and at 90 degrees shoulder flexion. Increased to blue tband right shoulder flex, ext, IR, ER, and chest press. 2# ball UE circles for proprioception. 7# wand for flexion and chest press. In sitting, 2# ball for resistive right shoulder flexion, scaption, and abd, sets of 5 reps. In standing , 4# to right wrist with small ball on wall and then large ball with bilateral UE's. Cable pulleys for scap retraction 30# and bilateral shoulder extension increased to 20#, 2s/10reps each. Cable with 10# for right forward chest press. Red tband overhead flex/ext in "baseball throw" pattern. Doorway stretching, 3 positions. Total minutes of Exercise: 48mins Manual Therapy: NA HOME EXERCISE PROGRAM: gentle scapula ROM with sling on,, Codmans, cervical retraction, cervical lateral flexion. Table slides. Isometric shoulder flex, ext , add, and abd. Overhead shoulder pulleys. Wand for shoulder flexion to shoulder height in sitting. Cuff series, no weight. - Objective Findings Observations,measurements,etc.: In supine, right shoulder AA flexion to 158 degrees and ER to 74 degrees. - Charges Timed Code Treatment Minutes: 48mins Total Treatment Time: 48mins Procedures billed for this date of service:: EX3 Assessment: Patient continues to need therapy to increase end range which is limiting his AROM and functional reaching. Patient Education: Body/Joint mechanics, Home Exercise Program Comments: Patient edcuation on joint mechanics and need to increase end range motion to improve active reaching with all functional activities. Patient demonstrates compliance with HEP?: Yes Short Term Goals Goal #1: Pt independent and compliant with HEP and surgery precautions. Goal to be met by: 09/06/17 Progress towards Goal:: Met Goal #2: Right shoulder strength 4+/5 in available range. Goal to be met by: 10/20/17 Progress towards Goal:: Partially Met Goal #3: Right shoulder PROM WFL's. Goal to be met by: 09/06/17 Progress towards Goal:: Met Goal #4: Pt will demonstrates good postural awareness. Goal to be met by: 09/06/17 Progress towards Goal:: Partially Met Fdc Goals Goal #1: Pt knows HEP and to continue ex's to maintain level of function at D/C. Goal to be met by: 11/15/17 Progress towards goal: Progressing Goal #2: Score on UE functional scale improved to 65/80. Goal to be met by: 11/15/17 Goal #3: Right shoulder AROM WFL's to perform all selfcare and ADL's. Goal to be met by: 11/15/17 Progress towards goal: Partially Met Goal #4: Pt able to perform all functional reaching without pain. Goal to be met by: 11/15/17 Progress towards goal: Partially Met (Patient reports limitation more due to tightness than pain.) Plan PLAN OF CARE EXPIRES ON:: 11/15/17 ORDER # VISITS AND/OR THROUGH DATE: 11/15/17 PLAN: Focus on right shoulder joint flexibility and ROM to increase functional reaching.
--- NOTE | 2017-10-28 09:20 | RS.OPPTDN ---
Subjective Date of Note: 10/28/17 Visit #: 29 Date of Evaluation: 08/23/17 Payer Source: Insurance Treatment Diagnosis: Right shoulder pain, shoulder stiffness, s/p shoulder surgery Current Subjective/complaints:: Patient reports increased right shoulder joint tightness today. *Precautions: Biceps Tenodesis Interventions - Exercise/Activities/Manual Therapy Exercises/Activities: Focus today on passive stretching of the right shoulder joint in all directions, including IR and ER. Isometric's right shoulder all directions including IR and ER, with arm at side and at 90 degrees shoulder flexion. Blue tband right shoulder flex, ext, IR, ER, and chest press. 2# ball UE circles for proprioception, then flex, scaption, and horz abd. In sitting, 2 # ball for resistive right shoulder flexion, scaption, and abd, sets of 5 reps. In standing, 2# ball on wall. Reviewed doorway stretching, 3 positions. Total minutes of Exercise: 41mins Manual Therapy: NA HOME EXERCISE PROGRAM: gentle scapula ROM with sling on,, Codmans, cervical retraction, cervical lateral flexion. Table slides. Isometric shoulder flex, ext , add, and abd. Overhead shoulder pulleys. Wand for shoulder flexion to shoulder height in sitting. Cuff series, no weight. - Charges Timed Code Treatment Minutes: 41mins Total Treatment Time: 41mins Procedures billed for this date of service:: EX3 Assessment: Focus today on PROM and end range stretching. Patient progressing well with strengthening in available range, but limited due to tightness at end range. Patient Education: Home Exercise Program Patient demonstrates compliance with HEP?: Yes Short Term Goals Goal #1: Pt independent and compliant with HEP and surgery precautions. Goal to be met by: 09/06/17 Progress towards Goal:: Met Goal #2: Right shoulder strength 4+/5 in available range. Goal to be met by: 10/20/17 Progress towards Goal:: Partially Met Goal #3: Right shoulder PROM WFL's. Goal to be met by: 09/06/17 Progress towards Goal:: Met Goal #4: Pt will demonstrates good postural awareness. Goal to be met by: 09/06/17 Progress towards Goal:: Partially Met Computer Aide Goals Goal #1: Pt knows HEP and to continue ex's to maintain level of function at D/C. Goal to be met by: 11/15/17 Progress towards goal: Progressing Goal #2: Score on UE functional scale improved to 65/80. Goal to be met by: 11/15/17 Goal #3: Right shoulder AROM WFL's to perform all selfcare and ADL's. Goal to be met by: 11/15/17 Progress towards goal: Partially Met Goal #4: Pt able to perform all functional reaching without pain. Goal to be met by: 11/15/17 Progress towards goal: Partially Met (Patient reports limitation more due to tightness than pain.) Plan PLAN OF CARE EXPIRES ON:: 11/15/17 ORDER # VISITS AND/OR THROUGH DATE: 11/15/17 PLAN: Continue to focus on end range stretching to increase AROM.
--- NOTE | 2017-11-02 08:57 | RS.OPPTDN ---
Subjective Date of Note: 11/02/17 Visit #: 30 Date of Evaluation: 08/23/17 Payer Source: Insurance Treatment Diagnosis: Right shoulder pain, shoulder stiffness, s/p shoulder surgery Current Subjective/complaints:: Patient reports ROM seems to be better today. States he is using the right UE more with light ADL's. *Precautions: Biceps Tenodesis Pain Assessment - Pain Description Pain Location: Right shoulder joint Pain Description: soreness Current Pain Intensity: mild Other Comments regarding Pain:: pain and tightness limiting end range of motion. Interventions - Exercise/Activities/Manual Therapy Exercises/Activities: Focus today on passive stretching of the right shoulder joint in all directions. Isometric's right shoulder all directions including IR and ER, with arm at side and at 90 degrees shoulder flexion. Green tband right shoulder flex, ext, IR, ER, and chest press. 2# ball UE circles for proprioception. 3# dumbell for flex, scaption, and horz abd. In sitting, increased to 3# ball for resistive right shoulder flexion, scaption, and abd, sets of 5 reps. In standing, 3# to wrist for resistance with ball on wall. Cable pulleys 10# for chest press at shoulder height. Green tband for resisted shoulder x4 directions. Ended with additional end range stretching with patient in supine. Total minutes of Exercise: 43mins Manual Therapy: NA HOME EXERCISE PROGRAM: gentle scapula ROM with sling on,, Codmans, cervical retraction, cervical lateral flexion. Table slides. Isometric shoulder flex, ext , add, and abd. Overhead shoulder pulleys. Wand for shoulder flexion to shoulder height in sitting. Cuff series, no weight. - Charges Timed Code Treatment Minutes: 43mins Total Treatment Time: 43mins Procedures billed for this date of service:: EX3 Assessment: Patient needs assisted stretching to increase ROM for increased use of the right UE with daily activities. Patient Education: Body/Joint mechanics, Home Exercise Program Patient demonstrates compliance with HEP?: Yes Short Term Goals Goal #1: Pt independent and compliant with HEP and surgery precautions. Goal to be met by: 09/06/17 Progress towards Goal:: Met Goal #2: Right shoulder strength 4+/5 in available range. Goal to be met by: 10/20/17 Progress towards Goal:: Partially Met Goal #3: Right shoulder PROM WFL's. Goal to be met by: 09/06/17 Progress towards Goal:: Met Goal #4: Pt will demonstrates good postural awareness. Goal to be met by: 09/06/17 Progress towards Goal:: Partially Met Cash Management Clerk Goals Goal #1: Pt knows HEP and to continue ex's to maintain level of function at D/C. Goal to be met by: 11/15/17 Progress towards goal: Progressing Goal #2: Score on UE functional scale improved to 65/80. Goal to be met by: 11/15/17 Goal #3: Right shoulder AROM WFL's to perform all selfcare and ADL's. Goal to be met by: 11/15/17 Progress towards goal: Partially Met Goal #4: Pt able to perform all functional reaching without pain. Goal to be met by: 11/15/17 Progress towards goal: Partially Met (Patient reports limitation more due to tightness than pain.) Plan PLAN OF CARE EXPIRES ON:: 11/15/17 ORDER # VISITS AND/OR THROUGH DATE: 11/15/17 PLAN: Progress ROM and strengthening to increase functional use of the Right UE.
--- NOTE | 2017-11-05 12:02 | RS.OPPTDN ---
Subjective Date of Note: 11/05/17 Visit #: 31 Date of Evaluation: 08/23/17 Payer Source: Insurance Treatment Diagnosis: Right shoulder pain, shoulder stiffness, s/p shoulder surgery Current Subjective/complaints:: Following discussion, patient states he is in agreement to plan for discharge next week as he appears to be reaching a plateau in progress. He state he will continue HEP with focus on end range stretching. *Precautions: Biceps Tenodesis Pain Assessment - Pain Description Pain Location: Right shoulder and proximal clavicle. Pain Description: Tightness Other Comments regarding Pain:: No shoulder pain at rest, mod+ with end range stretch. Mild soreness at the right clavicle. Interventions - Exercise/Activities/Manual Therapy Exercises/Activities: Conitnued to work on passive stretching of the right shoulder joint in all directions, with joint mobs. Isometric's right shoulder all directions. Green tband right shoulder flex, ext, IR, ER, and chest press. 2 # ball UE circles for proprioception, then diagonal PNF patterns. 5# wand for shoulder flexion and overhead press. In sitting, 3# ball for resistive right shoulder flexion, scaption, and abd, sets of 5 reps. Red theraband for overhead baseball throw. Cable pulleys 10# for chest press at shoulder height. Green tband for resisted shoulder x4 directions. Assisted doorway stretch, 3 positions , to review proper position. Total minutes of Exercise: 40mins Manual Therapy: NA HOME EXERCISE PROGRAM: gentle scapula ROM with sling on,, Codmans, cervical retraction, cervical lateral flexion. Table slides. Isometric shoulder flex, ext , add, and abd. Overhead shoulder pulleys. Wand for shoulder flexion to shoulder height in sitting. Cuff series, no weight. - Objective Findings Observations,measurements,etc.: Active right shoulder flexion to 152-155 degrees in standing. Patient demos 4+/5 MMT in given range. - Charges Timed Code Treatment Minutes: 40mins Total Treatment Time: 42mins Procedures billed for this date of service:: EX3 Assessment: Patient strength has progressed but he continues to have active and passive motion limited at end range. Patient Education: Education of diagnosis, Body/Joint mechanics, Home Exercise Program, Education of Plan of Care Patient demonstrates compliance with HEP?: Yes Short Term Goals Goal #1: Pt independent and compliant with HEP and surgery precautions. Goal to be met by: 09/06/17 Progress towards Goal:: Met Goal #2: Right shoulder strength 4+/5 in available range. Goal to be met by: 10/20/17 Progress towards Goal:: Met Goal #3: Right shoulder PROM WFL's. Goal to be met by: 09/06/17 Progress towards Goal:: Met Goal #4: Pt will demonstrates good postural awareness. 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 Goal to be met by: 11/15/17 Progress towards goal: Partially Met Goal #2: Score on UE functional scale improved to 65/80. Goal to be met by: 11/15/17 Goal #3: Right shoulder AROM WFL's to perform all selfcare and ADL's. Goal to be met by: 11/15/17 Progress towards goal: Met Goal #4: Pt able to perform all functional reaching without pain. Goal to be met by: 11/15/17 Progress towards goal: Met (Patient reports limitation more due to tightness than pain.) Plan PLAN OF CARE EXPIRES ON:: 11/15/17 ORDER # VISITS AND/OR THROUGH DATE: 11/15/17 PLAN: See patient next week to assess progress and prepare for discharge with HEP if indicated.
== END 2017-11-05 23:59 ==
PROVIDERS: ATTEND Orthopaedic Surgery
DX: S43.431A Superior glenoid labrum lesion of right shoulder, initial encounter (principal)

== ENCOUNTER 2017-11-10 11:55 | Outpatient (RCR) | payer OTHER ==
--- NOTE | 2017-11-10 15:19 | RS.OPPTDN ---
Subjective Date of Note: 11/10/17 Visit #: 32 Date of Evaluation: 08/23/17 Payer Source: Insurance Treatment Diagnosis: Right shoulder pain, shoulder stiffness, s/p shoulder surgery Current Subjective/complaints:: Patient reports he is doing most daily activities, including lifting, without pain. States end range motion is limited by tightness, but does not seem to limit daily activities. *Precautions: Biceps Tenodesis Pain Assessment - Pain Description Pain Location: no pain Interventions - Exercise/Activities/Manual Therapy Exercises/Activities: Conitnued to work on passive stretching of the right shoulder joint in all directions, with joint mobs. Isometric's right shoulder all directions. Green tband right shoulder flex, ext, IR, ER, and chest press. 3 # dumbell for shoulder flexion, scaption, and overhead press. In sitting, 2# dumbell for resistive right shoulder flexion, scaption, and abd. Wall angels. Passive end range stretching in sitting into flex, scap, and abd. Reveiwed all HEP and patient given blue and black therabands for progression of UE and postural strengthening. Total minutes of Exercise: 42mins Manual Therapy: NA HOME EXERCISE PROGRAM: gentle scapula ROM with sling on,, Codmans, cervical retraction, cervical lateral flexion. Table slides. Isometric shoulder flex, ext , add, and abd. Overhead shoulder pulleys. Wand for shoulder flexion to shoulder height in sitting. Cuff series, no weight. - Objective Findings Observations,measurements,etc.: Active right shoulder flexion 158 degrees, and abd to 160 degrees. Patient demos 4+/5MMT in given range. Patient now demos right hand benzene worker to 81# (with left at 65#). Increased Upper Extremity Functional Index score has increased to 75/80 or 6.25% (was 2/80 or 97.50%) - Charges Timed Code Treatment Minutes: 42mins Total Treatment Time: 44mins Procedures billed for this date of service:: EX3 Assessment: Patient has progressed well and benefitted from treatment. He appears to be at a plateau in AROM at this time, but has functional strength and motion. He has met all goals and will continue HEP following discharge. Patient Education: Body/Joint mechanics, Home Exercise Program, Education of Plan of Care Comments: Completed patient education and finalized HEP with patient given theraband for progression. Patient demonstrates compliance with HEP?: Yes Short Term Goals Goal #1: Pt independent and compliant with HEP and surgery precautions. Goal to be met by: 09/06/17 Progress towards Goal:: Met Goal #2: Right shoulder strength 4+/5 in available range. Goal to be met by: 10/20/17 Progress towards Goal:: Met Goal #3: Right shoulder PROM WFL's. Goal to be met by: 09/06/17 Progress towards Goal:: Met Goal #4: Pt will demonstrates good postural awareness. 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 Goal to be met by: 11/15/17 Progress towards goal: Met Goal #2: Score on UE functional scale improved to 65/80. Goal to be met by: 11/15/17 Progress towards goal: Met Goal #3: Right shoulder AROM WFL's to perform all selfcare and ADL's. Goal to be met by: 11/15/17 Progress towards goal: Met Goal #4: Pt able to perform all functional reaching without pain. Goal to be met by: 11/15/17 Progress towards goal: Met (Patient reports limitation more due to tightness than pain.) Plan PLAN OF CARE EXPIRES ON:: 11/15/17 ORDER # VISITS AND/OR THROUGH DATE: 11/15/17 PLAN: Discharge with HEP.
--- NOTE | 2017-11-10 15:52 | RS.QUICKDC ---
Discharge from PT Date of Discharge: 11/10/17 Number of Visits: 32 Reason for Discharge: Patient progressed well with treatment. He was able to demo right shoulder ROM WFL and 4+/5 MMT. There is a limit in end range motion due to tightness. He met all treatment goals and independent with HEP. Discharge at this time with HEP.
== END 2017-12-05 23:59 ==
PROVIDERS: ATTEND Orthopaedic Surgery
DX: S43.431D Superior glenoid labrum lesion of right shoulder, subsequent encounter (principal); M25.511 Pain in right shoulder; M25.611 Stiffness of right shoulder, not elsewhere classified; G89.18 Other acute postprocedural pain; Z98.890 Other specified postprocedural states

== ENCOUNTER 2017-11-21 18:31 | Emergency (ER) | payer OTHER ==
[2017-11-21 18:38] VITALS: BP 96/62; TEMP 96.7; BMI 24.8
[2017-11-21] MEDS ORDERED: MORPHINE 2 MG/ML SYRINGE IM STA (18:42)
[2017-11-21] MEDS ORDERED: PHENERGAN 25 MG/ML VIAL IM STA (18:42)
--- NOTE | 2017-11-21 19:23 | DI ---
EXAM: Three views of the right shoulder HISTORY: Pain, limited range of motion. TECHNIQUE: Internal and external AP frontal views of the right shoulder and a lateral view were obta ined. FINDINGS: The humeral head is seen in normal position. There is a mildly displaced oblique fracture of the proximal to mid right humerus. The fracture appears to be complete. IMPRESSION: There is a mildly displaced oblique fracture of the proximal to mid right humerus.
--- NOTE | 2017-11-21 19:29 | ED.PDOC ---
General ED Provider: Dr. GUILLERMO RAMIREZ-ER Chief Complaint: Extremity Pain/Injury Stated Complaint: i was getting up from the floor and i heard a pop Time Seen by Physician: 18:35 Mode of Arrival: Walk-In Information Source: Patient Exam Limitations: No limitations Primary Care Provider: CAMMIE FINN Nursing and Triage Documentation Reviewed and Agree: Yes Does patient meet sepsis criteria?: No System Inflammatory Response Syndrome: Not Applicable Sepsis Protocol: For patient's 13 years and over: Temp is 96.8 and below OR 101 and greater Pulse >90 BPM Resp >20/minute Acutely Altered Mental Status Are patient's symptoms suggestive of a new infection, such as: -Pneumonia -Skin, Soft Tissue -Endocarditis -UTI -Bone, Joint Infection -Implantable Device -Acute Abdominal Infection -Wound Infection -Meningitis -Blood Stream Catheter Infection -Unknown Musculoskeletal Complaint Exam - Upper Extremity Complaint/Exam Location of Pain: Reports: Right, Arm Mechanism of Injury: Reports: Trauma Onset/Duration: one hour Symptoms Are: Still present Timing: Constant Initial Severity: Mild Current Severity: Mild Location: Reports: Discrete (right arm) Character: Reports: Dull, Aching Aggravating: Reports: Movement, Lifting, Flexion, Extension Alleviating: Reports: None Related History: Reports: Similar episode Non-Orthopedic Risk Factors: Reports: None Septic Arthritis Risk Factors: Reports: None Related Surgical History: Reports: Other Orthopedic Surgery Compartment Syndrome Risk Factors: Present: Pain. Absent: Paralysis, Pallor, Pulselessness, Paresthesias Differential Diagnoses: Closed Fracure, Strain, Sprain Review of Systems - Review Of Systems Constitutional: Reports: No symptoms Eyes: Reports: No symptoms Ears, Nose, Mouth, Throat: Reports: No symptoms Respiratory: Reports: No symptoms Cardiac: Reports: No symptoms GI: Reports: No symptoms : Reports: No symptoms Musculoskeletal: Reports: Muscle pain, Other Skin: Reports: No symptoms Neurological: Reports: No symptoms Endocrine: Reports: No symptoms Hematologic/Lymphatic: Reports: No symptoms All Other Systems: Reviewed and Negative Past Medical History - Past Medical History Previously Healthy: Yes Endocrine: Reports: Dyslipidemia Cardiovascular: Reports: None Respiratory: Reports: None Hematological: Reports: None Gastrointestinal: Reports: GERD Genitourinary: Reports: None Neuro/Psych: Reports: Migraine, Anxiety Musculoskeletal: Reports: Arthritis, Back Pain Cancer: Reports: None Other Pertinent Past Medical History: CHRONIC NERVE PAIN. CHRONIC BACK PAIN. - Surgical History General Surgical History: Reports: Unknown - Family History Family History: Reports: Unknown - Social History Smoking Status: Current every day smoker, Heavy tobacco smoker Hx Substance Use: No Alcohol Screening: None Physical Exam - Physical Exam Appearance: Well-appearing, No pain distress, Well-nourished Pain Distress: Moderate Eyes: NATALI, EOMI, Conjunctiva clear ENT: Ears normal, Nose normal, Oropharynx normal Neck: Supple Respiratory: Airway patent, Breath sounds clear, Breath sounds equal, Respirations nonlabored Cardiovascular: RRR, Pulses normal, No rub, No murmur GI/: Soft, Nontender, No masses, Bowel sounds normal, No Organomegaly Musculoskeletal: Limited ROM, Limited strength Skin: Warm, Dry, Normal color Neurological: Sensation intact, Motor intact, Reflexes intact, Cranial nerves intact, Alert, Oriented Psychiatric: Affect appropriate, Mood appropriate, Anxious Interpretation - Radiology Interpretation Radiology Interpretation By: Radiologist Radiology Results: Positive Procedures - Splinting Location: right arm by nursing staff Hand-Made Type: Orthoglass Splint: Vinay splint Pre-Proc Neuro Vasc Exam: Normal Post-Proc Neuro Vasc Exam: Normal Re-Evaluation - Re-Evaluation Time of Re-Evaluation: 19:55 Status: Improved Vital Signs Stable: Yes Pain Level: 2 Appearance: NAD Lungs: Clear Skin: Warm and Dry Neuro: Alert and Oriented X3 CV: RRR Physician Notification - Case Discussed Physician Notified: dr agarwal Time of Notification: 19:56 Critical Care Note - Critical Care Note Total Time (mins): 0 Course - Course Orders, Labs, Meds: Orders Category Date Time Status Morphine Sulfate [Morphine 2 mg/ml Syringe] MEDS 11/21/17 18:42 Discontinued 4 mg IM ONCE STA Promethazine HCl [Phenergan 25 mg/ml Vial] MEDS 11/21/17 18:42 Discontinued 25 mg IM ONCE STA ELBOW, RIGHT MIN 3 VIEWS Stat RADS 11/21/17 18:42 Completed HUMERUS, RIGHT 2 VIEWS Stat RADS 11/21/17 18:51 Completed SHOULDER, RIGHT MIN 2V Stat RADS 11/21/17 18:42 Completed Medications Discontinued Medications Generic Name Dose Route Start Last Admin Trade Name Freq PRN Reason Stop Dose Admin Morphine Sulfate 4 mg 11/21/17 18:42 11/21/17 18:52 Morphine 2 Mg/Ml Syringe IM 11/21/17 18:43 4 mg ONCE STA Administration Promethazine HCl 25 mg 11/21/17 18:42 11/21/17 18:53 Phenergan 25 Mg/Ml Vial IM 11/21/17 18:43 25 mg ONCE STA Administration Vital Signs: Temp Pulse Resp BP Pulse Ox 11/21/17 18:33 96.7 F L 76 16 96/62 95 Departure - Departure Time of Disposition: 19:56 Disposition: HOME SELF-CARE Discharge Problem: Humerus fracture Qualifiers: Encounter type: initial encounter Humerus Location: shaft Fracture type: closed Fracture morphology: oblique Fracture alignment: nondisplaced Laterality : right Qualified Code(s): S42.334A - Nondisplaced oblique fracture of shaft of humerus, right arm, initial encounter for closed fracture Instructions: Arm Fracture in Adults (ED) Condition: Good Pt referred to PMD for follow-up: Yes IPMP verified?: No Additional Instructions: stay in splint--dr agarwal tomorrow am as discussed Allergies/Adverse Reactions: Allergies No Known Allergies Allergy (Verified 11/21/17 18:38) Home Medications: Ambulatory Orders Lorazepam [Ativan] 1 mg PO PRN PRN 01/07/14 Hydrocodone/Acetaminophen [Hydrocodon-Acetaminophn 10-325] 1 tab PO PRN PRN 08/21 Simvastatin [Zocor] 20 mg PO QPM 11/01/15 Disposition Discussed With: Patient, Family
--- NOTE | 2017-11-21 19:37 | DI ---
EXAM: Right humerus two views HISTORY: Trauma COMPARISON: None. FINDINGS: There is a mildly displaced oblique fracture of the junction of the proximal and middle th ird of the humerus with 9.3 mm lateral displacement distal fracture fragment. IMPRESSION: There is a mildly displaced oblique fracture involving the mid humeral
--- NOTE | 2017-11-21 19:39 | DI ---
EXAM: Right elbow three views HISTORY: Trauma COMPARISON: None. FINDINGS: Examination is limited due to positioning. There is no obvious fracture, dislocation or j oint effusion. IMPRESSION: No acute findings.
[2017-11-21] MEDS ORDERED: DILAUDID 2 MG/ML SDV IM STA (20:00)
[2017-11-21] MEDS ORDERED: ZOFRAN 4 MG/2 ML IM STA (20:00)
[2017-11-21] MEDS ORDERED: DILAUDID 2 MG/ML SDV ONE (20:02)
[2017-11-21] MEDS ORDERED: ZOFRAN 4 MG/2 ML ONE (20:02)
== END 2017-11-21 20:15 | disposition home or self-care (01) ==
LOC: ED 18:31
DX: S42.334A Nondisplaced oblique fracture of shaft of humerus, right arm, initial encounter for closed fracture (principal); F17.210 Nicotine dependence, cigarettes, uncomplicated
CPT/HCPCS: 96372; 99283

== ENCOUNTER 2018-08-22 06:03 | Outpatient (CLI) | END 2018-08-22 06:04 | disposition home or self-care (01) | LOC: LAB 06:03 | PROVIDERS: ATTEND Family Medicine | DX: R53.83 Other fatigue (principal); E78.01 Familial hypercholesterolemia; Z12.5 Encounter for screening for malignant neoplasm of prostate | CPT/HCPCS: 36415; 80053; 80061; 84153; 85025 ==